=== PATIENT | female | born 1955 | race Caucasian/White ===

== ENCOUNTER → 2022-04-13 | Outpatient (CLI) | payer MEDICARE, SELFPAY ==
[2022-04-13 15:31] LABS: Absolute Lymphocyte Count 2.64 X10^3/uL (0.83-4.51); Absolute Neutrophil Count 11.9 X10^3/uL (2.0-7.7); Basophil# 0.07 X10^3/uL; Basophil% 0.4 % (0-1); Eosinophils% 0.6 % (0-5); Hematocrit 49.3 % (37-47); Hemoglobin 15.8 g/dL (12.0-15.0); Lymphocyte # 2.64 X10^3/ul (0.83-4.51); Lymphocyte % 16.9 % (19-41); Mean Corpuscular Hgb 29.6 pg (27.0-32.0); Mean Corpuscular Volume 92.3 fL (81-99); Mean Platelet Vol. 9.8 fl (6.2-12.0); Monocyte% 5.7 % (0-10); NRBC Flagged by Analyzer 0 % (0-5); Neutrophil # 11.88 X10^3/uL (2.7-7.7); Platelet Count 354 K/mm3 (150-450); RBC Distribution Width CV 12.6 % (11.6-14.6); RBC Distribution Width SD 42.6 fl (35.1-43.9); Red Blood Count 5.34 M/mm3 (4.2-5.4); White Blood Count 15.7 K/mm3 (4.4-11.0)
[2022-04-13 15:47] LABS: AST(SGOT) 22 U/L (15-37); Alanine Aminotransfer ALT/SGPT 34 U/L (13-56); Albumin, Serum 3.7 g/dL (3.2-5.0); Alkaline Phosphatase 84 U/L (45-117); Anion Gap 6 (5-15); BUN 10 mg/dL (7-18); BUN/Creat Ratio 14.3 RATIO (10-20); Calcium,Total 9.5 mg/dL (8.5-10.1); Chloride 106 mmol/L (98-107); EST Glomerular Filtration Rate 89 mL/min (>60); Est Glom Filt Rate - Afr Amer 108 mL/min (>60); Globulin 3.7 g/dL (2.2-4.2); Glucose 105 mg/dL (74-106); Potassium 3.4 mmol/L (3.5-5.1); Protein, Total 7.4 g/dL (6.4-8.2); Sodium Level 142 mmol/L (136-145); T4 Free Direct 1.22 ng/dL (0.76-1.46); Thyroid Stim Hormone (TSH) 0.89 uIU/mL (0.358-3.74)
== END | disposition home or self-care (01) ==
PROVIDERS: PCP Internal Medicine; Referring Provider Internal Medicine; Visit Provider Internal Medicine
DX: K52.9 Noninfective gastroenteritis and colitis, unspecified (principal); R63.4 Abnormal weight loss
CPT/HCPCS: 36415; 80053; 84439; 84443; 85025

== ENCOUNTER → 2022-04-14 | Outpatient (CLI) | payer MEDICARE, SELFPAY ==
[2022-04-17 21:13] LABS: Calprotectin, Stool 48 ug/g (0-120)
== END | disposition home or self-care (01) ==
LOC: LABSPEC 10:32
PROVIDERS: PCP Internal Medicine; Referring Provider Internal Medicine; Visit Provider Internal Medicine
DX: K52.9 Noninfective gastroenteritis and colitis, unspecified (principal); R19.5 Other fecal abnormalities
CPT/HCPCS: 82274; 83630; 83993; 87493

== ENCOUNTER 2025-01-13 10:14 | Inpatient (IN) | payer MEDICARE, SELFPAY ==
[2025-01-13] VITALS (15 sets, daily range): BP systolic 127–184; BP diastolic 71–114; PULSE 97–120; RESP 10–30; TEMP 36.4–36.6; O2SAT 91–98; BMI 23.5; BMI 23.2
--- NOTE | 2025-01-13 10:33 | EKG12_ITS ---
Test Reason : SOB Blood Pressure : */* mmHG Vent. Rate : 100 BPM Atrial Rate : 100 BPM P-R Int : 134 ms QRS Dur : 82 ms QT Int : 346 ms P-R-T Axes : 81 81 75 degrees QTcB Int : 446 ms Normal sinus rhythm Normal ECG Confirmed by LEOBARDO DEGROOT, AYAAN ([id number]), industrial editor SAFIA JEAN ([id number]) on 01/15/2025 6:51:08 AM Referred By: MEGHAN/VENECIA Confirmed By: AYAAN BOOTH MD
--- NOTE | 2025-01-13 10:42 | ED.VIS.DYS ---
HPI History of Present Illness Chief Complaint: Shortness of Breath Narrative Narrative: Chief complaint and HPI: Shortness of breath. 69-year-old female with past medical history of tobacco abuse, COPD, HTN, HLD, history of blood clots presents for evaluation of shortness of breath. Patient does not follow with a financial director. She has not seen a doctor in years. She does not take any medications. She states she has home oxygen at home which she has had for years. States the oxygen has not been helping with her shortness of breath. She states she takes an inhaler at home for her COPD. When I ask her who prescribes her inhaler she says no one, I get the inhaler on the streets by people who no longer need them. Onset of shortness of breath was approximately 1 week ago. She denies any fever, chills, URI symptoms, chest pain, abdominal pain, nausea, vomiting, bilateral lower extremity edema. Review of systems: See HPI Medications: As listed on the chart Allergies: As listed on the chart PFSH: Per chart Vital signs: As listed on the chart. Reviewed. Physical exam: Gen: A&O x3, NAD Head: Normocephalic, atraumatic Eyes: No sclera icterus, conjunctiva clear ENT: Moist mucous membranes Neck: Trachea midline, No JVD CV: Tachycardic, regular rhythm, no murmurs, no peripheral edema Resp: Lungs diminished, expiratory wheezing, poor airflow, tight, tachypneic GI: Abd soft, non-distended, non-tender, no r/r/g Musc: Full ROM, no deformity Skin: Warm, dry Neuro: Alert, oriented, grossly intact, sensation intact Psych: Cooperative, appropriate mood and affect [facility] Medical History (Updated 04/13/22 @ 16:[address] Bay Miller MD) Tobacco abuse Generalized anxiety disorder with panic attacks Unintentional weight loss of 10% body weight within 6 months Dark stools Chronic diarrhea High cholesterol Hypertension Gastrointestinal problem COPD (chronic obstructive pulmonary disease) Hx of blood clots Home Medications ?Medication ?Instructions ?Recorded ?Last Taken ?Type NK 01/13/25 Unknown History Allergy/AdvReac Type Severity Reaction Status Date / Time No Known Allergies Allergy Verified 01/13/25 10:15 Family History (Updated 04/13/22 @ 14:08 by Rosie Momin) Sister Arthritis Mother Myocardial infarction Other Anxiety Heart disease High cholesterol Social History Smoking Status: Current every day smoker tobacco type: cigarettes EXAM Physical Exam Const Vital Signs: 01/13/25 10:15 01/13/25 10:15 01/13/25 10:30 Temperature 97.9 F Temperature Source Temporal Pulse Rate 116 H 120 H Respiratory Rate 30 H Respiratory Effort Labored Accessory Muscle Use Respiratory Pattern Tachypnea Blood Pressure 184/87 H Blood Pressure Mean 119 Pulse Ox 91 93 Oxygen Delivery Method Room Air Room Air Fraction of Inspired Oxygen (FIO2) 01/13/25 10:37 01/13/25 10:56 01/13/25 11:22 Temperature Temperature Source Pulse Rate 105 H Respiratory Rate 24 H 24 H Respiratory Effort Accessory Muscle Use Respiratory Pattern Blood Pressure 148/84 H Blood Pressure Mean 105 Pulse Ox 94 Oxygen Delivery Method Room Air Fraction of Inspired Oxygen (FIO2) 01/13/25 11:26 01/13/25 12:00 01/13/25 12:26 Temperature Temperature Source Pulse Rate 107 H 101 H 114 H Respiratory Rate 28 H 21 H 23 H Respiratory Effort Respiratory Pattern Blood Pressure 139/81 H Blood Pressure Mean 100 Pulse Ox 98 95 96 Oxygen Delivery Method Fraction of Inspired Oxygen (FIO2) 21 21 01/13/25 12:42 01/13/25 12:43 01/13/25 13:00 Temperature 97.9 F Temperature Source Pulse Rate 108 H 115 H 107 H Respiratory Rate 28 H 21 H Respiratory Effort Respiratory Pattern Blood Pressure 127/99 H 144/75 H Blood Pressure Mean 108 98 Pulse Ox 96 92 Oxygen Delivery Method Room Air Fraction of Inspired Oxygen (FIO2) 01/13/25 14:00 Temperature Temperature Source Pulse Rate 105 H Respiratory Rate Respiratory Effort Respiratory Pattern Blood Pressure 144/75 H Blood Pressure Mean 98 Pulse Ox 96 Oxygen Delivery Method Room Air Fraction of Inspired Oxygen (FIO2) MDM MDM MDM Narrative Medical decision making narrative: 69-year-old female with past medical history of tobacco abuse, COPD, HTN, HLD, history of blood clots presents for evaluation of shortness of breath. Patient does not follow with a financial director. She has not seen a doctor in years. She does not take any medications other than an inhaler that she gets off the streets. She states she has home oxygen at home which she has had for years. States the oxygen has not been helping with her shortness of breath. Shortness of breath approximately 1 week. On presentation, patient is hypertensive, tachycardic, tachypneic. No hypoxia. She has expiratory wheezing with a tight chest. 500 cc NS bolus, DuoNebs, Solu-Medrol ordered for symptoms. Suspect COPD exacerbation although viral illness, hypertension urgency, ACS, PE, pneumonia, CHF are all within the differential. Patient's hypertension is likely her baseline from untreated hypertension. Will give some hydralazine. Respiratory/cardiac workup ordered. Hypertension improved with hydralazine. VBG shows mild hypercapnia without acidosis. Likely chronic CO2 retainer based on VBG. CBC with mild leukocytosis of 13.9. Patient has hemoconcentration of 15.5. Platelet count unremarkable. D-dimer unremarkable. BMP unremarkable. BNP unremarkable. Troponin 29 and 26. Patient not endorsing any chest pain. No ischemic changes on EKG. On reevaluation, patient is still tachypneic with pursed lip breathing. Her respiration rate is between 35 and 40. I do feel that the patient would benefit from BiPAP for work of breathing. BiPAP placed. Another DuoNeb ordered. CODE STATUS was discussed with the patient, states she is full code. Patient originally stating that she wants to leave AMA. When I explained her condition further forward to her and that I do not think this is safe, she is consented to stay. Patient will warrant admission. Spoke with the hospitalist service he would like ABG and trial off BiPAP with pulse ox ambulation trial. This was ordered. ABG was unable to be obtained and patient refused further attempts. She was taken off of BiPAP. On BiPAP, patient's tachycardia and respirations improved however off, she is not tachycardic again and breathing with a rate of 35-40. We did ambulate her with pulse ox, no hypoxia. Hospitalist did come evaluate the patient. Plan is for admission. EKG: Interpreted by me/EM physician: EKG shows normal sinus rhythm without any acute ischemic changes. Heart rate 100. Diagnostic: Interpreted by me/EM physician: Chest x-ray without pneumonia, effusion, cardiomegaly, pneumothorax. Radiology in agreement. Impression: 1. COPD exacerbation 2. Hypertension 3. Medical noncompliance Lab Data Labs: Laboratory Results - last 24 hr 01/13/25 01/13/25 10:28 12:30 WBC 13.9 H RBC 5.06 Hgb 15.5 H Hct 48.8 H MCV 96.4 MCH 30.6 MCHC 31.8 L RDW Std Deviation 45.7 H RDW Coeff of Faisal 12.9 Plt Count 323 MPV 9.3 Immature Gran % (Auto) 1.700 H Neut % (Auto) 71.6 H Lymph % (Auto) 17.0 L Hettinger % (Auto) 8.3 Eos % (Auto) 0.6 Baso % (Auto) 0.8 Absolute Neuts (auto) 10.0 H Absolute Lymphs (auto) 2.36 Nucleated RBC % 0 D-Dimer Quant (PE/DVT) 0.27 Sodium 139 Potassium 3.7 Chloride 101 Carbon Dioxide 25.6 Anion Gap 13 BUN 10 Creatinine 0.84 Estim Creat Clear Calc 47.03 L Est GFR (MDRD) Non-Af 74 BUN/Creatinine Ratio 11.7 Glucose 158 H Calcium 9.6 Troponin T High Sens 29 H Troponin T Hi Sens 2 Hr 26 H NT pro BNP II 108 ABG Data ABG results: ABG 01/13/25 01/13/25 10:43 13:43 Specimen Type ARLINE ARLINE Sample Site Not entered Not entered VBG pH 7.41 7.43 H VBG pO2 35 38 VBG HCO3 38 H 33 H VBG Total CO2 40 H 34 H VBG O2 Sat (Calc) 65 73 H VBG Base Excess 14 H 8 H POC Mix VBG pCO2 Pt Tmp 60.3 H 48.5 O2 Delivery Device Not entered Not entered Radiography Diagnostic Testing: Clinical Impression(s) from Imaging Studies Chest X-Ray 01/13/25 10:50 IMPRESSION: NO ACUTE FINDINGS. Reading Location: [id number] Discharge Plan Disposition Disposition: Acute Care Hospital [facility] Discharge Date/Time: 01/13/25 14:47
[2025-01-13 10:48] LABS: SITE Not entered; VBG BASE EXCESS 14 mmol/L (-1.0-3.5); VBG PO2 35 mmHg (25-40); VBG SO2 65 % (50-70); VBG TCO2 40 mmol/L (23-33)
[2025-01-13 10:48] LABS: Hematocrit 48.8 % (37-47); Hemoglobin 15.5 g/dL (12.0-15.0); Immature Granulocytes Count 0.230 X10^3/uL (0.0-0.0); Mean Corp Hgb Conc 31.8 g/dL (32-36); Mean Corpuscular Volume 96.4 fL (81-99); Mean Platelet Vol. 9.3 fl (6.2-12.0); NRBC Flagged by Analyzer 0 % (0-5); Platelet Count 323 K/mm3 (150-450); RBC Distribution Width CV 12.9 % (11.6-14.6); RBC Distribution Width SD 45.7 fl (35.1-43.9); Red Blood Count 5.06 M/mm3 (4.2-5.4); White Blood Count 13.9 K/mm3 (4.4-11.0)
--- NOTE | 2025-01-13 10:50 | RAD_ITS ---
PROCEDURE: CHEST PA AND LATERAL 01/13/2025 REASON FOR EXAM: SHORTNESS OF BREATH TECHNIQUE: CHEST PA AND LATERAL COMPARISON: None. FINDINGS: LUNGS AND PLEURA: No focal airspace consolidation. Minimal strandy opacity in the left lung base, likely atelectasis/scarring. No pleural effusion or pneumothorax. HEART AND MEDIASTINUM: The heart size and mediastinal contours are normal. AORTA: Calcified thoracic aorta. BONES: No acute osseous abnormality. OTHER: Small to moderate-sized hiatal hernia noted. RAD/Chest PA and Lateral IMPRESSION: NO ACUTE FINDINGS. Reading Location: [id number]
[2025-01-13] MEDS: 0.9% Normal Saline (500mL Bag) 500 ML 999 ML IV (11:03)
[2025-01-13 11:35] LABS: D-Dimer Quantitative (DVT/PE) 0.27 FEU/ug/m (0.27-0.49)
[2025-01-13 11:40] LABS: Pro- Brain NATRIURETIC PEPTIDE 108 pg/mL (<=900); Troponin T High Sensitivity 29 ng/L (<=14)
--- NOTE | 2025-01-13 11:40 | CPS ---
Patient tried BiPAP for 15-20 minutes. She was unable to tolerate at this time. Dr and RN aware.
[2025-01-13 11:41] LABS: Anion Gap 13 (5-15); BUN 10 mg/dL (4-19); BUN/Creat Ratio 11.7 RATIO (10-20); Calcium,Total 9.6 mg/dL (7.6-11.0); Carbon Dioxide 25.6 mmol/L (21.0-32.0); Chloride 101 mmol/L (98-108); Estimated Creatinine Clearance 47.03 ml/min (50-250); Glucose 158 mg/dL (70-99); Potassium 3.7 mmol/L (3.3-5.1)
--- NOTE | 2025-01-13 12:26 | CPS ---
Patient reluctant to try BiPAP again. Breathing treatment done in-line. Patient tolerated for 25-35 minutes and then removed mask.
[2025-01-13 13:23] LABS: Troponin T High Sens 2 HR 26 ng/L (<=14)
--- NOTE | 2025-01-13 13:24 | ED.RN ---
Pt weak and SOB when ambulating
--- NOTE | 2025-01-13 13:29 | CPS ---
Patient reported having taken bipap mask off around 1300.
[2025-01-13 13:50] LABS: SITE Not entered; VBG BASE EXCESS 8 mmol/L (-1.0-3.5); VBG PO2 38 mmHg (25-40); VBG SO2 73 % (50-70); VBG TCO2 34 mmol/L (23-33)
[2025-01-13] MEDS: hydrOXYzine PAM 25 MG Capsule 50 MG PO ×2 (15:37→21:08)
[2025-01-13 17:25] LABS: Troponin T High Sens 4 HR 21 ng/L (<=14)
--- NOTE | 2025-01-13 19:09 | PCM.HP.STD ---
[facility] - General General Date of Admission: 01/13/25 Date of Service: 01/13/25 Chief Complaint: Shortness of breath HPI Narrative SUSHANT MEDEIROS, is a 69 F who presents to the emergency [facility] with complaints of shortness of breath x 1 week. Patient does not go to a physician chronically, the last time the medical records here indicated that she was seen by a primary care physician was 3 years ago. Patient has a history of COPD, she states that she bought a home oxygen machine on the Internet but it only goes up to 3 L/min, she also states that she is using an old inhaler. Over the past several days, patient has had increasing shortness of breath, she denies any chills or fever, she denied any productive sputum. Patient is a daily smoker of approximately 1 pack of cigarettes a day. On examination in the emergency room, patient appeared to be very dyspneic with rapid shallow respirations between 30 and 40/min. Despite this, patient's pulse ox was 94% on room air. Patient had a chest x-ray performed which showed no acute process, she had a D-dimer performed which was not abnormal. Patient refused an arterial blood gas, she understood that it would be helpful with her care. Patient was given several aerosol treatments and IV Solu-Medrol but she remained dyspneic, again, her pulse ox did not drop below 90% at rest however although she was very tachypneic. Patient was admitted to PCU for acute exacerbation of COPD, pulse ox will be monitored, she will be given aerosol treatments, IV Solu-Medrol, and I placed her on oral Zithromax. [facility] Medical History (Updated 01/14/25 @ 09:[address] Hai Nicolas, ) Tobacco abuse Generalized anxiety disorder with panic attacks Unintentional weight loss of 10% body weight within 6 months Dark stools Chronic diarrhea High cholesterol Hypertension Gastrointestinal problem COPD (chronic obstructive pulmonary disease) Hx of blood clots Home Medications ?Medication ?Instructions ?Recorded ?Last Taken ?Type NK 01/13/25 Unknown History Allergy/AdvReac Type Severity Reaction Status Date / Time No Known Allergies Allergy Verified 01/13/25 10:15 Family History (Updated 04/13/22 @ 14:08 by Rosie Momin) Sister Arthritis Mother Myocardial infarction Other Anxiety Heart disease High cholesterol Social History Smoking Status: Current every day smoker tobacco type: cigarettes ROS Constitutional Constitutional: Reports fatigue; Denies anorexia, change in weight, chills, fever(s), night sweats or weakness Eyes Eyes: Denies blurry vision, change in vision, discharge from eye(s) or eye pain Cardiovascular Cardiovascular: Reports dyspnea on exertion; Denies chest pain, claudication, edema or palpitations Respiratory/Chest Respiratory/Chest: Reports dyspnea, shortness of breath at rest and shortness of breath with exertion; Denies cough or hemoptysis Gastrointestinal Gastrointestinal: Denies abdominal pain, constipation, diarrhea, hematemesis, hematochezia, melena, nausea or vomiting Genitourinary Genitourinary: Denies dysuria, hematuria, urinary frequency, urinary hesitancy, urinary incontinence or urinary urgency Musculoskeletal Musculoskeletal: Denies back pain, joint pain, joint stiffness, joint swelling, myalgias or neck pain Neurologic Neurologic: Denies abnormal gait, abnormal speech, dizziness, focal weakness, headache(s), loss of vision, numbness, other visual disturbances, paresthesias, syncope or tingling Psychiatric Psychiatric: Denies anxiety, cognitive impairment, depression, irritability, mood swings or suicidal ideation Endocrine Endocrinology: Denies change in body appearance, cold intolerance, excessive sweating, heat intolerance, polydipsia or polyuria Hematologic/Lymphatic Hematologic/Lymphatic: Denies none, anemia, easy bleeding, easy bruising or lymphadenopathy Allergic/Immunologic Allergic/Immunologic: Denies rhinitis, urticaria, eczemia or asthma Vital Signs Vital Signs Vital Signs: 01/13/25 10:15 01/13/25 10:15 01/13/25 10:30 Temperature 97.9 F Temperature Source Temporal Pulse Rate 116 H 120 H Respiratory Rate 30 H Respiratory Effort Labored Accessory Muscle Use Respiratory Depth Respiratory Pattern Tachypnea Blood Pressure 184/87 H Blood Pressure Mean 119 Blood Pressure Source Blood Pressure Position Blood Pressure Location Pulse Ox 91 93 Oxygen Delivery Method Room Air Room Air Oxygen Flow Rate (L/min) Fraction of Inspired Oxygen (FIO2) 01/13/25 10:37 01/13/25 10:56 01/13/25 11:22 Temperature Temperature Source Pulse Rate 105 H Respiratory Rate 24 H 24 H Respiratory Effort Accessory Muscle Use Respiratory Depth Respiratory Pattern Blood Pressure 148/84 H Blood Pressure Mean 105 Blood Pressure Source Blood Pressure Position Blood Pressure Location Pulse Ox 94 Oxygen Delivery Method Room Air Oxygen Flow Rate (L/min) Fraction of Inspired Oxygen (FIO2) 01/13/25 11:26 01/13/25 12:00 01/13/25 12:26 Temperature Temperature Source Pulse Rate 107 H 101 H 114 H Respiratory Rate 28 H 21 H 23 H Respiratory Effort Respiratory Depth Respiratory Pattern Blood Pressure 139/81 H Blood Pressure Mean 100 Blood Pressure Source Blood Pressure Position Blood Pressure Location Pulse Ox 98 95 96 Oxygen Delivery Method Oxygen Flow Rate (L/min) Fraction of Inspired Oxygen (FIO2) 21 21 01/13/25 12:42 01/13/25 12:43 01/13/25 13:00 Temperature 97.9 F Temperature Source Pulse Rate 108 H 115 H 107 H Respiratory Rate 28 H 21 H Respiratory Effort Respiratory Depth Respiratory Pattern Blood Pressure 127/99 H 144/75 H Blood Pressure Mean 108 98 Blood Pressure Source Blood Pressure Position Blood Pressure Location Pulse Ox 96 92 Oxygen Delivery Method Room Air Oxygen Flow Rate (L/min) Fraction of Inspired Oxygen (FIO2) 01/13/25 14:00 01/13/25 14:51 01/13/25 15:00 Temperature 97.6 F L Temperature Source Oral Pulse Rate 105 H 102 H Respiratory Rate 22 H Respiratory Effort Respiratory Depth Respiratory Pattern Blood Pressure 144/75 H 134/114 H Blood Pressure Mean 98 120 Blood Pressure Source Monitor Blood Pressure Position Semi-Fowlers Blood Pressure Location Left Arm Pulse Ox 96 94 Oxygen Delivery Method Room Air Room Air Room Air Oxygen Flow Rate (L/min) Fraction of Inspired Oxygen (FIO2) 01/13/25 15:11 01/13/25 17:51 Temperature Temperature Source Pulse Rate 107 H Respiratory Rate 20 H Respiratory Effort Short of Breath Respiratory Depth Shallow Respiratory Pattern Tachypnea Normal Blood Pressure Blood Pressure Mean Blood Pressure Source Blood Pressure Position Blood Pressure Location Pulse Ox Oxygen Delivery Method Nasal Cannula Oxygen Flow Rate (L/min) 2 Fraction of Inspired Oxygen (FIO2) Weight Weight: 55.8 kg Body Mass Index (BMI) 23.2 Physical Exam Const alert, oriented x3 and healthy appearing Constitutional Narrative: Patient is to With rapid shallow respirations, patient appears uncomfortable General Appearance: cooperative, well kempt and well developed Orientation / Consciousness: awake, oriented to person, oriented to place and oriented to time HEENT normocephalic and moist oral mucous membranes; Negative for head/scalp atraumatic Eyes PERRL, EOMs intact bilaterally and conjunctivae normal Neck supple, no JVD, thyroid normal and no carotid bruits General: trachea midline Resp clear to auscultation bilaterally Resp Narrative: Use of accessory muscles as noted, patient has retractions, patient is tachypneic with shallow respirations, breath sounds are diminished bilaterally Auscultation: Negative for rales, rhonchi or wheezes Cardio regular rate, regular rhythm, S1 normal heart sound, S2 normal heart sound, no murmurs, no rub and no gallops GI normal to inspection, nondistended, normoactive bowel sounds, soft to palpation, non-tender and non-distended Extremity no clubbing, cyanosis or edema Skin no rashes or lesions noted General Skin Exam: no breakdown Neuro oriented x3, CN's II-XII intact bilaterally, no focal motor deficits and no sensory deficits noted Sensorium / Orientation: awake and alert Speech: speech normal Psych affect normal Results Lab / Micro Data 01/13/25 10:28 01/13/25 10:28 Labs: Laboratory Results - last 24 hr 01/13/25 10:28: WBC 13.9 H, RBC 5.06, Hgb 15.5 H, Hct 48.8 H, MCV 96.4, MCH 30.6, MCHC 31.8 L, RDW Std Deviation 45.7 H, RDW Coeff of Faisal 12.9, Plt Count 323, MPV 9.3, Immature Gran % (Auto) 1.700 H, Neut % (Auto) 71.6 H, Lymph % (Auto) 17.0 L, Blount % (Auto) 8.3, Eos % (Auto) 0.6, Baso % (Auto) 0.8, Absolute Neuts (auto) 10.0 H, Absolute Lymphs (auto) 2.36, Nucleated RBC % 0, D-Dimer Quant (PE/DVT) 0.27, Sodium 139, Potassium 3.7, Chloride 101, Carbon Dioxide 25.6, Anion Gap 13, BUN 10, Creatinine 0.84, Estim Creat Clear Calc 47.03 L, Est GFR (MDRD) Non-Af 74, BUN/Creatinine Ratio 11.7, Glucose 158 H, Calcium 9.6, Troponin T High Sens 29 H, NT pro BNP II 108 01/13/25 12:30: Troponin T Hi Sens 2 Hr 26 H 01/13/25 16:09: Troponin T Hi Sens 4Hr 21 H ABG Data ABG results: ABG 01/13/25 01/13/25 10:43 13:43 Specimen Type ARLINE ARLINE Sample Site Not entered Not entered VBG pH 7.41 7.43 H VBG pO2 35 38 VBG HCO3 38 H 33 H VBG Total CO2 40 H 34 H VBG O2 Sat (Calc) 65 73 H VBG Base Excess 14 H 8 H POC Mix VBG pCO2 Pt Tmp 60.3 H 48.5 O2 Delivery Device Not entered Not entered Imaging Radiology Impression Chest X-Ray 01/13/25 10:50 IMPRESSION: NO ACUTE FINDINGS. Reading Location: [id number] Assessment & Plan Assessment/Plan (1) COPD with exacerbation: PLAN: Plan 1. Exacerbation of COPD-patient will be admitted to PCU, she will be monitored on telemetry and her pulse ox will be monitored, she will receive IV Solu-Medrol and aerosol treatments #2 noncompliance with medical treatment-patient does not follow-up on a regular basis with a physician, she had been on several medications in the past including inhalers. Total clinical time spent by myself addressing patient's medical issues, reviewing all of her data, and collaborating with patient's care team: 55 minutes Charges/Coding Visit Charges Inpatient E&M: 64509 Init Hosp L2
[2025-01-13] MEDS: Heparin Injection (Vial) 5,000 UNIT/ML VIAL 5000 UNIT SC (21:08)
--- OUTSIDE RECORDS SUMMARY | 2025-01-13 22:30 | XMS RPT_ITS | CCD ---
Author Organization [facility] Care Team Providers Care [employer]et [employer] Name Role Phone REINALDO VALLEJO DO Attending Unavailable REINALDO VALLEJO DO Primary Care Unavailable ROBERT ENGLISH, DR. KAYLA Muhammad Attending Enrico CHAVEZ MD., DR. KAYLA Muhammad Primary Care Dr. Kayla Olivo Primary Care Provider Dr. Kayla Chavez Referring Provider Dr. Bay Miller Attending Provider [phone] Oleghe, Efewongbe Primary Care Unavailable Don Bronson Attending Unavailable Oleghe, Efewongbe Referring Unavailable Oleghe, Efewongbe Referring Unavailable Oleghe, Efewongbe Primary Care Unavailable Oleghe, Efewongbe Attending Unavailable Oleghe, Efewongbe Referring Unavailable Oleghe, Efewongbe Primary Care Unavailable Oleghe, Efewongbe Attending Unavailable Oleghe, Efewongbe Primary Care Unavailable Oleghe, Efewongbe Attending Unavailable Seanghe, Efewongbe Referring Unavailable Kayla Chavez Primary Care Unavailable Kayla Chavez Referring Unavailable Oleghe, Efewongbe Attending Unavailable Dr. Bay Miller MD Primary Care Provider Dr. Marc Delgadillo DO Emergency Provider Dr. Hai Nicolas DO Admit Provider [phone] Dr. Hai Nicolas DO Attending Provider Medications Current Medications Medication Drug Class(es) Dates Sig (Normalized) Sig (Original) [place] (Nk) (1 source) Start: 01-13-2025 [place] (Nk) Active January 13, 2025 12:00am tiotropium 0.018 mg inhalation powder (1 source) Anticholinergic Start: 03-01-2016 take 1 puff(s) by inhalation once daily Tiotropium [place] (Spiriva 18 Mcg) 1 PUFF inhaler Active 1 PUFF INHALATION DAILY February 29, 2016 11:00pm Completed/Discontinued Medications Medication Drug Class(es) Dates Sig (Normalized) Sig (Original) albuterol 0.21 mg/ml inhalation solution (2 sources) beta2-Adrenergic Agonist Start: 04-13-2022 End: 01-13-2025 take 0.63 mg by inhalation every six hours Albuterol Sulfate 0.63 mg/3 mL solution for nebulization Discontinued 0.63 mg INHALATION EVERY 6 HOURS April 13, 2022 12:00am January 13, 2025 12:41pm ALPRAZolam 0.5 mg oral tablet (3 sources) Benzodiazepine Start: 04-13-2022 End: 01-13-2025 take 1 tablet by mouth once daily as needed for anxiety Alprazolam 0.5 mg tablet Discontinued 0.5 mg PO DAILY as needed for anxiety 30 0 April 29, 2022 6:05pm January 13, 2025 12:41pm Generalized anxiety disorder with panic attacks Generalized anxiety disorder Panic disorder [episodic paroxysmal anxiety] amLODIPine 10 mg oral tablet (2 sources) Dihydropyridine Calcium Channel Carmelo Start: 04-13-2022 End: 01-13-2025 take 1 tablet by mouth once daily Amlodipine 10 mg tablet Discontinued 10 mg PO DAILY April 13, 2022 12:00am January 13, 2025 12:41pm atorvastatin 10 mg oral tablet (2 sources) HMG-CoA Reductase Inhibitor Start: 04-13-2022 End: 01-13-2025 take 1 tablet by mouth once daily Atorvastatin 10 mg tablet Discontinued 10 mg PO DAILY April 13, 2022 12:00am January 13, 2025 12:41pm Budesonide-Formote rol (2 sources) Corticosteroid, beta2-Adrenergic Agonist Start: 04-13-2022 End: 01-13-2025 Budesonide-Formot pedro (Symbicort) 80-4.5 mcg/actuation HFA aerosol inhaler Discontinued 1 NMA INHALATION ONCE April 13, 2022 12:00am January 13, 2025 12:41pm Start: 04-13-2022 Budesonide-For moterol (Symbicort) 80-4.5 mcg/actuation HFA aerosol inhaler Active 1 INH INHALATION ONCE April 12, 2022 11:00pm ketorolac tromethamine 10 mg oral tablet (2 sources) Nonsteroidal Anti-inflammatory Drug, Cyclooxygenase Inhibitor Start: 03-01-2016 End: 04-13-2022 take 1 tablet by mouth three times daily as needed for pain Ketorolac 10 MG tablet Discontinued 10 mg PO 3 TIMES DAILY NEEDED as needed for Pain March 01, 2016 11:38am April 13, 2022 1:56pm lisinopril 5 mg oral tablet (2 sources) Angiotensin Converting Enzyme Inhibitor Start: 03-01-2016 End: 04-13-2022 take 1 tablet by mouth once daily Lisinopril 5 MG tablet Discontinued 5 mg PO DAILY March 01, 2016 12:00am April 13, 2022 1:57pm predniSONE 10 mg oral tablet (2 sources) Start: 04-13-2022 End: 01-13-2025 take 1 tablet by mouth once daily Prednisone 10 mg tablet Discontinued 10 mg PO DAILY April 13, 2022 12:00am January 13, 2025 12:41pm rosuvastatin calcium 20 mg oral tablet (2 sources) HMG-CoA Reductase Inhibitor Start: 03-01-2016 End: 04-13-2022 take 1 tablet by mouth once daily Rosuvastatin (Crestor) 20 MG tablet Discontinued 20 mg PO DAILY March 01, 2016 12:00am April 13, 2022 1:57pm sertraline 25 mg oral tablet (2 sources) Serotonin Reuptake Inhibitor Start: 04-13-2022 End: 01-13-2025 take 1 tablet by mouth once daily Sertraline (Zoloft) 25 mg tablet Discontinued 25 mg PO DAILY 30 April 13, 2022 12:00am January 13, 2025 12:41pm Tiotropium [place] (Spiriva 18 Mcg) 1 PUFF inhaler (1 source) Start: 03-01-2016 End: 01-13-2025 Tiotropium [place] (Spiriva 18 Mcg) 1 PUFF inhaler Discontinued 1 NMA INHALATION DAILY March 01, 2016 12:00am January 13, 2025 12:41pm Problems Problem Classification Problem Date Documented Da te Episodic/Chronic Anxiety disorders (3 sources) Generalized anxiety disorder; Translations: [Generalized anxiety disorder] Chronic Essential hypertension (3 sources) Hypertensive disorder; Translations: [Essential (primary) hypertension] Chronic Noninfectious gastroenteritis (4 sources) Chronic diarrhea; Translations: [Noninfective gastroenteritis and colitis, unspecified] Onset: 04-20-2022 Episodic Other gastrointestinal disorders (1 source) Irritable bowel syndrome without diarrhea; Translations: [Irritable bowel syndrome without diarrhea] Onset: 04-13-2022 Chronic Other gastrointestinal disorders (2 sources) Dark stools; Translations: [Other fecal abnormalities] 04-13-2022 Episodic Other gastrointestinal disorders (2 sources) Other fecal abnormalities; Translations: [Nonspecific abnormal findings in stool contents] Onset: 04-13-2022 Episodic Other nutritional; endocrine; and metabolic disorders (2 sources) Unintentional weight loss; Translations: [Abnormal weight loss] 04-13-2022 Episodic Other nutritional; endocrine; and metabolic disorders (2 sources) Abnormal weight loss; Translations: [Loss of weight] Onset: 04-13-2022 Episodic Residual codes; unclassified (2 sources) Tobacco user; Translations: [Tobacco use] 04-13-2022 Episodic Residual codes; unclassified (1 source) Tobacco use; Translations: [Tobacco use disorder] Episodic Results Test Name Value Interpretation Reference Range Facility Absolute lymphocyte countOrd ered By: Marc Delgadillo on 01-13-2025 Lymphocytes Auto (Unsp spec) [#/Vol] 2.36 10*3/uL 0.83-4.51 [facility] Absolute neutrophil countOrd ered By: Mrac Delgadillo on 01-13-2025 Neutrophils (Bld) [#/Vol] 10.0 10*3/uL High 2.0-7.7 [facility] Anion gap in Serum or Plasma Ordered By: Marc Delgadillo on 01-13-2025 Anion gap [Moles/Vol] 13 mmol/L 5-15 [facility] Automated lymphocyte count a s percentage of total leukocytesOrdered By: Marc Delgadillo on 01-13-2025 Lymphocytes/100 WBC Auto (Unsp spec) 17.0 % Low 19-41 [facility] BUN/creatinine ratioOrdered By: Marc Delgadillo on 01-13-2025 Urea nitrogen/Creatinine [Mass ratio] 11.7 mg/mg 10-20 [facility] Basophil percentageOrdered B y: Marc Delgadillo on 01-13-2025 Basophils/100 WBC (Bld) 0.8 % 0-1 [facility] CO2 (BldV) [Moles/Vol]Ordere d By: Hai Nicolas on 01-13-2025 CO2 [Moles/Vol] 34 mmol/L High 23-33 [facility] Carbon dioxide, total [Moles /volume] in Central venous bloodOrdered By: Marc Delgadillo on 01-13-2025 CO2 [Moles/Vol] 25.6 mmol/L 21.0-32.0 [facility] Chloride assayOrdered By: Marin Delgadillo on 01-13-2025 Chloride [Moles/Vol] 101 mmol/L 98-[address] [facility] Eosinophil percentageOrdered By: Marc Delgadillo on 01-13-2025 Eosinophils/100 WBC (Bld) 0.6 % 0-5 [facility] Erythrocyte distribution wid th ratioOrdered By: Marc Delgadillo on 01-13-2025 Erythrocyte distribution width (RBC) [Ratio] 12.9 % 11.6-14.6 [facility] Erythrocyte distribution wid th standard deviationOrdered By: Marc Meehan on 01-13-2025 Erythrocyte distribution width (RBC) [Ratio] 45.7 fl High 35.1-43.9 [facility] Glomerular filtration rate ( GFR) estimation/1.73 sq m using serum, plasma, or whole bOrdered By: Marc Delgadillo on 01-13-2025 GFR/1.73 sq M.predicted among non-blacks MDRD (S/P/Bld) [Vol rate/Area] 74 mL/min/{1.73_m2} >60 [facility] Comment on above: mL/min/1.73m2 CKD-EP I Creatinine Equation (2020) Hematocrit Auto (Bld) [Volum e fraction]Ordered By: Marc Delgadillo on 01-13-2025 Hematocrit (Bld) [Volume fraction] 48.8 % High 37-47 [facility] Hemoglobin measurementOrdere d By: Marc Delgadillo on 01-13-2025 Hemoglobin (Bld) [Mass/Vol] 15.5 g/dL High 12.0-15.0 [facility] Immature granulocytes/100 WB C Auto (Bld)Ordered By: Marc Delgadillo on 01-13-2025 Immature granulocytes/100 WBC (Bld) 1.700 % High 0.0-0.9 [facility] Comment on above: IG% - Immature Granu locytes (promyelocytes, myelocytes and metamyelocytes) > 1% indicates that a LEFT SHIFT is Present. MCV (mean corpuscular volume ) determinationOrdered By: Marc Delgadillo on 01-13-2025 MCV (RBC) [Entitic vol] 96.4 fL 81-99 [facility] Mean corpuscular hemoglobin (MCH) determinationOrdered By: Marc Delgadillo on 01-13-2025 MCH (RBC) [Entitic mass] 30.6 pg 27.0-32.0 [facility] Mean corpuscular hemoglobin concentration (MCHC) determinationOrdered By: Marckay Delgadillo on 01-13-2025 MCHC (RBC) [Mass/Vol] 31.8 g/dL Low 32-36 [facility] Mean platelet volume determi nationOrdered By: Marc Delgadillo on 01-13-2025 Platelet mean volume (Bld) [Entitic vol] 9.3 fL 6.2-12.0 [facility] Monocyte percentageOrdered B y: Marc Delgadillo on 01-13-2025 Monocytes/100 WBC (Bld) 8.3 % 0-10 [facility] Natriuretic peptide.B prohor bethany N-Terminal [Mass/volume] in Serum or PlasmaOrdered By: Marc Delgadillo on 01-13-2025 Natriuretic peptide.B prohormone N-Terminal [Mass/Vol] 108 pg/mL <900 [facility] Comment on above: Heart Failure Unlike ly: < 300 pg/mLHeart Failure Likely< 50 Years: > 450 pg/mL50-75 Years: > 900 pg/mL>75 Years: > 1800 pg/mL Neutrophil percentageOrdered By: Marc Dlegadillo on 01-13-2025 Neutrophils/100 WBC (Bld) 71.6 % High 47-70 [facility] No Panel InformationOrdered By: Hai Nicolas on 01-13-2025 Blood Gas Sample Site Not entered [facility] Blood Gas Specimen Type ARLINE [facility] Oxygen Delivery Device Not entered [facility] Nucleated red blood cell per centageOrdered By: Marc Delgadillo on 01-13-2025 Nucleated RBC/100 WBC (Bld) [Ratio] 0 % 0-5 [facility] Platelet countOrdered By: Marin Delgadillo on 01-13-2025 Platelets (Bld) [#/Vol] 323 10*3/uL 150-450 [facility] Potassium measurement (mass/ volume)Ordered By: Marc Delgadillo on 01-13-2025 Potassium (Unsp spec) [Mass/Vol] 3.7 mmol/L 3.3-5.1 [facility] RBC Auto (Bld) [#/Vol]Ordere d By: Marc Delgadillo on 01-13-2025 RBC (Bld) [#/Vol] 5.06 10*6/uL 4.2-5.4 [facility] Serum creatinine measurement (mass/volume)Ordered By: Marc Delgadillo on 01-13-2025 Creatinine [Mass/Vol] 0.84 mg/dL 0.70-1.20 [facility] Serum glucose measurement (m ass/volume)Ordered By: Marc Delgadillo on 01-13-2025 Glucose [Mass/Vol] 158 mg/dL High 70-99 [facility] Serum or plasma calcium silas urement (mass/volume)Ordered By: Marc Meehan on 01-13-2025 Calcium [Mass/Vol] 9.6 mg/dL 7.6-11.0 [facility] Serum or plasma urea nitroge n measurement (mass/volume)Ordered By: Marc Delgadillo on 01-13-2025 Urea nitrogen [Mass/Vol] 10 mg/dL 4-19 [facility] Sodium levelOrdered By: Alex Delgadillo on 01-13-2025 Sodium [Moles/Vol] 139 mmol/L 133-145 [facility] Troponin T.cardiac [Mass/vol ume] in Serum or Plasma by High sensitivity methodOrdered By: Marc Delgadillo on 01-13-2025 Troponin T.cardiac High sensitivity method [Mass/Vol] 26 ng/L High <14 [facility] Troponin T.cardiac High sensitivity method [Mass/Vol] 29 ng/L High <14 [facility] Venous blood base excess oriana surementOrdered By: Hai Nicolas on 01-13-2025 Base excess Calc (BldV) [Moles/Vol] 8 mmol/L High -1.0-3.5 [facility] Venous blood bicarbonate oriana surementOrdered By: Hai Nicolas on 01-13-2025 HCO3 (Bld) [Moles/Vol] 33 mmol/L High 22-26 [facility] Venous blood oxygen saturati on measurementOrdered By: Hai Nicolas on 01-13-2025 Oxygen saturation in Blood 73 % High 50-70 [facility] Venous blood pH measurementO rdered By: Hai Nicolas on 01-13-2025 pH (BldV) 7.43 [pH] High 7.32-7.42 [facility] Venous blood partial pressur e of carbon dioxide measurementOrdered By: Hai Nicolas on 01-13-2025 CO2 (BldV) [Partial pressure] 48.5 mm[Hg] 41-51 [facility] Venous blood partial pressur e of oxygen measurementOrdered By: Hai Nicolas on 01-13-2025 Oxygen (BldV) [Partial pressure] 38 mm[Hg] 25-40 [facility] White blood cell (WBC) count Ordered By: Marc Delgadillo on 01-13-2025 WBC (Bld) [#/Vol] 13.9 10*3/uL High 4.4-11.0 [facility] Calprotectin, Stoolon [address] 48 ug/g Normal 0-120 [facility] Comment on above: Result Comment: Conc entration Interpretation Follow-Up <16 - 50 ug/g Normal None >50 -120 ug/g Borderline Re-evaluate in 4-6 weeks >120 ug/g Abnormal Repeat as clinically indicated Performed at: [facility] [address] [place], [place] [id number] Daily Release And Dupe Printer: Velma Cordova MD, Phone: [phone] Performed By: #### L 7000.0700, M100.0605, M100.6796, M100.7900 #### [facility] [address] [place], [place], [id number] CDIFF (PCR)on 04-14-2022 CDIFF Reference Range: Negative Testing performed on AntCor by real time polymerase chain reaction (PCR) method. C. Diff PCR Negative- No toxigenic C. Diff Detected Normal [facility] Comment on above: Performed By: #### L 7000.0700, M100.0605, M100.6796, M100.7900 #### [facility] [address] [place], [place], [id number] No Panel Informationon 04-14 Stool Calprotectin 48 ug/g 0-120 [facility] Work Phone: Comment on above: Concentration Interp retation Follow-Up<16 - 50 ug/g Normal None>50 -120 ug/g Borderline Re-evaluate in 4-6 weeks >120 ug/g Abnormal Repeat as clinically indicatedPerformed at: [facility] [place], [place] [id number] Director: Velma Cordova MD, Phone: [phone] Stool Lactoferrin/WBCon WBCST Normal Reference Range = Negative Fecal WBC Lactoferrin A Positive: Fecal WBC Lactoferrin present A Normal [facility] Comment on above: Performed By: #### L 7000.0700, M100.0605, M100.6796, M100.7900 #### [facility] [address] [place], [place], [id number] Stool Occult Blood iFOBon STOB Normal Reference Range = Negative Immunochemical Fecal Occult Blood (iFOBT) method. Hemoccult Stl Ql IA Limitation: Menstral bleeding, constipation bleeding, bleeding hemorrhoids, and urinary bleeding conditions may interfere with test. Occult Blood Negative Normal [facility] Comment on above: Performed By: #### L 7000.0700, M100.0605, M100.6796, M100.7900 #### [facility] [address] [place], [address] Absolute lymphocyte counton 04-13-2022 Lymphocytes Auto (Unsp spec) [#/Vol] 2.64 10*3/uL 0.83-4.51 [facility] Work Phone: Basophil percentageon 2021 Basophils/100 WBC (Bld) 0.4 % 0-1 [facility] Work Phone: Bilirubin [Mass/Vol] 0.70 mg/dL 0.20-1.[address] [facility] Work Phone: Comment on above: For patients on eltr ombopag therapy, use of Dimension [place] TBIL is not recommended. Chloride [Moles/Vol] 106 mmol/L 98-[address] [facility] Work Phone: Eosinophils/100 WBC (Bld) 0.6 % 0-5 [facility] Work Phone: Glucose [Mass/Vol] 105 mg/dL 74-106 [facility] Work Phone: Comment on above: Fasting Glucose resu lt from 100 to 125 mg/dL suggests IMPAIRED HOMEOSTASIS per A.D.A. criteria. Neutrophils (Bld) [#/Vol] 11.9 10*3/uL 2.0-7.7 [facility] Work Phone: Neutrophils/100 WBC (Bld) 76.0 % 47-70 [facility] Work Phone: Potassium [Moles/Vol] 3.4 mmol/L 3.5-5.1 [facility] Work Phone: Protein [Mass/Vol] 7.4 g/dL 6.4-8.2 [facility] Work Phone: Sodium [Moles/Vol] 142 mmol/L 136-145 [facility] Work Phone: WBC (Bld) [#/Vol] 15.7 10*3/uL 4.4-11.0 [facility] Work Phone: Blood erythrocytes count (nu mber/volume)on 04-13-2022 RBC (Bld) [#/Vol] 5.34 10*6/uL 4.2-5.4 [facility] Work Phone: Blood hemoglobin measurement (mass/volume)on 04-13-2022 Hemoglobin (Bld) [Mass/Vol] 15.8 g/dL 12.0-15.0 [facility] Work Phone: Blood lymphocytes/100 leukoc yteson 04-13-2022 Lymphocytes/100 WBC (Bld) 16.9 % 19-41 [facility] Work Phone: Blood monocytes/100 leukocyt eson 04-13-2022 Monocytes/100 WBC (Bld) 5.7 % 0-10 [facility] Work Phone: Blood platelet mean volumeon 04-13-2022 Platelet mean volume (Bld) [Entitic vol] 9.8 fL 6.2-12.0 [facility] Work Phone: CBC W/Diff, Automatedon Absolute Lymph 2.64 X10 3/uL Normal 0.83-4.51 [facility] Comment on above: Performed By: #### L 506.0400, L100.0100, L500.4050, L501.9540 #### [facility] [address] [place], [place], [id number] Absolute Neut 11.9 X10 3/uL High 2.0-7.7 [facility] Comment on above: Performed By: #### L 506.0400, L100.0100, L500.4050, L501.9520 #### [facility] [address] [place], [address] Basophils/100 WBC (Bld) 0.4 % Normal 0-1 [facility] Comment on above: Performed By: #### L 506.0400, L100.0100, L500.4050, L501.9520 #### [facility] [address] [place], [address] Eosinophils/100 WBC (Bld) 0.6 % Normal 0-5 [facility] Comment on above: Performed By: #### L 506.0400, L100.0100, L500.4050, [id number] #### [facility] [address] [place], [address] Erythrocyte distribution width (RBC) [Ratio] 12.6 % Normal 11.6-14.6 [facility] Comment on above: Performed By: #### L 506.0400, L100.0100, L500.4050, L501.9520 #### [facility] [address] [place], [address] Hematocrit (Bld) [Volume fraction] 49.3 % High 37-47 [facility] Comment on above: Performed By: #### L 506.0400, L100.0100, L500.4050, [id number] #### [facility] [address] [place], [address] Hemoglobin (Bld) [Mass/Vol] 15.8 g/dL High 12.0-15.0 [facility] Comment on above: Performed By: #### L 506.0400, L100.0100, L500.4050, [id number] #### [facility] [address] [place], [address] IG% 0.400 Normal 0.0-0.9 [facility] Comment on above: Result Comment: IG% - Immature Granulocytes (promyelocytes, myelocytes and metamyelocytes) > 1% indicates that a LEFT SHIFT is Present. Performed By: #### L 506.0400, L100.0100, L500.4050, L501.9520 #### [facility] [address] [place], [address] Lymphocytes/100 WBC (Bld) 16.9 % Low 19-41 [facility] Comment on above: Performed By: #### L 506.0400, L100.0100, L500.4050, [id number] #### [facility] [address] [place], [address] MCH (RBC) [Entitic mass] 29.6 pg Normal 27.0-32.0 [facility] Comment on above: Performed By: #### L 506.0400, L100.0100, L500.4050, [id number] #### [facility] [address] [place], [address] MCHC (RBC) [Mass/Vol] 32.0 g/dL Normal 32-36 [facility] Comment on above: Performed By: #### L 506.0400, L100.0100, L500.4050, [id number] #### [facility] [address] [place], [address] MCV (RBC) [Entitic vol] 92.3 fL Normal 81-99 [facility] Comment on above: Performed By: #### L 506.0400, L100.0100, L500.4050, [id number] #### [facility] [address] [place], [address] Monocytes/100 WBC (Bld) 5.7 % Normal 0-10 [facility] Comment on above: Performed By: #### L 506.0400, L100.0100, L500.4050, [id number] #### [facility] [address] [place], [address] Neutrophils/100 WBC (Bld) 76.0 % High 47-70 [facility] Comment on above: Performed By: #### L 506.0400, L100.0100, L500.4050, [id number] #### [facility] [address] [place], [address] Nucleated RBC (Bld) [#/Vol] 0 10*3/uL Normal 0-5 [facility] Comment on above: Performed By: #### L 506.0400, L100.0100, L500.4050, [id number] #### [facility] [address] [place], [address] Platelet mean volume (Bld) [Entitic vol] 9.8 fL Normal 6.2-12.0 [facility] Comment on above: Performed By: #### L 506.0400, L100.0100, L500.4050, [id number] #### [facility] [address] [place], [address] Platelets (Bld) [#/Vol] 354 10*3/uL Normal 150-450 [facility] Comment on above: Performed By: #### L 506.0400, L100.0100, L500.4050, [id number] #### [facility] [address] [place], [address] RBC (Bld) [#/Vol] 5.34 10*6/uL Normal 4.2-5.4 [facility] Comment on above: Performed By: #### L 506.0400, L100.0100, L500.4050, [id number] #### [facility] [address] [place], [address] RDW SD 42.6 fl Normal 35.1-43.9 [facility] Comment on above: Performed By: #### L 506.0400, L100.0100, L500.4050, [id number] #### [facility] [address] [place], [address] WBC (Bld) [#/Vol] 15.7 10*3/uL High 4.4-11.0 [facility] Comment on above: Performed By: #### L 506.0400, L100.0100, L500.4050, [id number] #### [facility] [address] [place], [address] Comprehensive Metabolic Prof ilon 04-13-2022 Albumin [Mass/Vol] 3.7 g/dL Normal 3.2-5.0 [facility] Comment on above: Performed By: #### L 506.0400, L100.0100, L500.4050, [id number] #### [facility] [address] [place], [address] Albumin/Globulin [Mass ratio] 1.0 {ratio} Normal 0.9-2.4 [facility] Comment on above: Performed By: #### L 506.0400, L100.0100, L500.4050, [id number] #### [facility] [address] [place], [address] ALK P 84 U/L Normal 45-117 [facility] Comment on above: Performed By: #### L 506.0400, L100.0100, L500.4050, [id number] #### [facility] [address] [place], [address] ALT [Catalytic activity/Vol] 34 U/L Normal 13-56 [facility] Comment on above: Performed By: #### L 506.0400, L100.0100, L500.4050, [id number] #### [facility] [address] [place], [address] AST [Catalytic activity/Vol] 22 U/L Normal 15-37 [facility] Comment on above: Performed By: #### L 506.0400, L100.0100, L500.4050, [id number] #### [facility] [address] [place], [address] Bilirubin [Mass/Vol] 0.70 mg/dL Normal 0.20-1.[address] [facility] Comment on above: Result Comment: For patients on eltrombopag therapy, use of Dimension [place] TBIL is not recommended. Performed By: #### L 506.0400, L100.0100, L500.4050, [id number] #### [facility] [address] [place], [address] BUN/CRE 14.3 RATIO Normal 10-20 [facility] [facility] Comment on above: Performed By: #### L 506.0400, L100.0100, L500.4050, L501.9520 #### [facility] [address] [place], [address] CA,Total 9.5 mg/dL Normal 8.5-10.1 [facility] Comment on above: Performed By: #### L 506.0400, L100.0100, L500.4050, L501.9520 #### [facility] [address] [place], [address] Chloride [Moles/Vol] 106 mmol/L Normal 98-[address] [facility] Comment on above: Performed By: #### L 506.0400, L100.0100, L500.4050, [id number] #### [facility] [address] [place], [address] CO2 [Moles/Vol] 30.0 mmol/L Normal 21.0-32.0 [facility] Comment on above: Performed By: #### L 506.0400, L100.0100, L500.4050, L501.9520 #### [facility] [address] [place], [address] Creatinine [Mass/Vol] 0.70 mg/dL Normal 0.55-1.02 [facility] Comment on above: Result Comment: The validity of the calculated GFR GFRAA in patients over 70 years has not been determined. Clinical correlation is essential. Performed By: #### L 506.0400, L100.0100, L500.4050, [id number] #### [facility] [address] [place], [address] EST GFR - AA 108 mL/min Normal >60 [facility] Comment on above: Result Comment: Afri can Bur[place]ian GFR Calc Performed By: #### L 506.0400, L100.0100, L500.4050, [id number] #### [facility] [address] [place], [address] GAP 6 Normal 5-15 [facility] Comment on above: Performed By: #### L 506.0400, L100.0100, L500.4050, L501.9520 #### [facility] [address] [place], [address] GFR/1.73 sq M.predicted among non-blacks MDRD (S/P/Bld) [Vol rate/Area] 89 mL/min/{1.73_m2} Normal >60 [facility] Comment on above: Result Comment: Non- GFR Calc Performed By: #### L 506.0400, L100.0100, L500.4050, L501.9520 #### [facility] [address] [place], [address] Globulin (S) [Mass/Vol] 3.7 g/dL Normal 2.2-4.2 [facility] Comment on above: Performed By: #### L 506.0400, L100.0100, L500.4050, [id number] #### [facility] [address] [place], [address] Glucose [Mass/Vol] 105 mg/dL Normal 74-106 [facility] Comment on above: Result Comment: Fast ing Glucose result from 100 to 125 mg/dL suggests IMPAIRED HOMEOSTASIS per A.D.A. criteria. Performed By: #### L 506.0400, L100.0100, L500.4050, L501.9520 #### [facility] [address] [place], [address] Potassium [Moles/Vol] 3.4 mmol/L Low 3.5-5.1 [facility] Comment on above: Performed By: #### L 506.0400, L100.0100, L500.4050, [id number] #### [facility] [address] [place], [address] Sodium [Moles/Vol] 142 mmol/L Normal 136-145 [facility] Comment on above: Performed By: #### L 506.0400, L100.0100, L500.4050, [id number] #### [facility] [address] [place], [address] T PROT 7.4 g/dL Normal 6.4-8.2 [facility] Comment on above: Performed By: #### L 506.0400, L100.0100, L500.4050, [id number] #### [facility] [address] [place], [address] Urea nitrogen [Mass/Vol] 10 mg/dL Normal 7-18 [facility] Comment on above: Performed By: #### L 506.0400, L100.0100, L500.4050, [id number] #### [facility] [address] [place], [address] Determination of erythrocyte mean corpuscular volume (MCV)on 04-13-2022 MCV (RBC) [Entitic vol] 92.3 fL 81-99 [facility] Work Phone: Hematocrit Auto (Bld) [Volum e fraction]on 04-13-2022 Hematocrit (Bld) [Volume fraction] 49.3 % 37-47 [facility] Work Phone: Internal Medicine Office Vis iton 04-13-2022 Internal Medicine Office Visit [facility] [address] [place], [place] [address] OFFICE VISIT Date of Service: 04/13/22 MR#: [id number] Acct: [id number] Name: SUSHANT MEDEIROS Rep #: [id number] : 1955 Provider: Dr. 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 Chief Complaint: Est.Care Allergies No Known Allergies Allergy (Verified 04/13/22 13:56) Medications tiotropium bromide 18 mcg capsule with inhalation device (Spiriva with HandiHaler) 1 puff inhalation DAILY 03/01/16 [History Confirmed 04/13/22] albuterol sulfate 0.63 mg/3 mL solution for nebulization 0.63 mg inhalation Q6H 04/13/22 [History Confirmed 04/13/22] alprazolam 0.5 mg tablet 0.5 mg PO DAILY 04/13/22 [History Confirmed 04/13/22] amlodipine 10 mg tablet 10 mg PO DAILY 04/13/22 [History Confirmed 04/13/22] atorvastatin 10 mg tablet 10 mg PO DAILY 04/13/22 [History Confirmed 04/13/22] budesonide-formoterol HFA 80 mcg-4.5 mcg/actuation aerosol inhaler (Symbicort) 1 inh inhalation ONCE 04/13/22 [History Confirmed 04/13/22] prednisone 10 mg tablet 10 mg PO DAILY 04/13/22 [History Confirmed 04/13/22] sertraline 25 mg tablet (Zoloft) 25 mg PO DAILY #30 tabs 04/13/22 [Rx Confirmed 04/13/22] [facility] Medical History (Updated 04/13/22 @ 16:[address] Bay Miller MD) Chronic diarrhea COPD (chronic obstructive pulmonary disease) Dark stools Gastrointestinal problem Generalized anxiety disorder with panic attacks High cholesterol Hx of blood clots Hypertension Tobacco abuse Unintentional weight loss of 10% body weight within 6 months Family History (Updated 04/13/22 @ 14:08 by Rosie Momin) Sister Arthritis Mother Myocardial infarction Other Anxiety Heart disease High cholesterol Social History Smoking Status: Current every day smoker HPI HPI Chief Complaint: Est.Care Details: SUSHANT MEDEIROS, is a 66 F who presents to the office today to establish care. Also has some concerns. She reports weight loss over the last 8 months. Unintentional. She states that her appetite is good but has noted that she has progressively lost weight. Currently weighs 111 pounds but she states that prior to this, she was at 130. Also at the same time, has noted increased watery bowel movements. No significant abdominal pain just watery bowel movements. Most days, she has 3-4 and on very bad days she may have 7-8. Has noted that her stool is dark as well but denies bright blood in her stool. Has never had a colonoscopy. No reported family history of colon cancer. She smokes and has smoked for many years. Denies any difficulty swallowing or burning on swallowing. No chills, fever or otherwise feeling of unwell. Reports a chronic history of anxiety and has been on Xanax for many years. She states that she takes about 3-4 daily as needed depending on the situation. Has not been on an SSRI or SNRI. Denies any history of depression. History of hypertension, blood pressure today at 110/60 7 mmHg. Currently on amlodipine 10 mg daily which she reports compliance with. No chest pain, palpitation or worsening shortness of breath. History of COPD currently on Spiriva. Also on Symbicort. No recent exacerbations. Continues to smoke. ROS Const Constitutional: Positive for weight change; No anorexia, chills, excessive sweating, fatigue, fever(s), frequent falls, headache(s) or night sweats Eyes Eyes: No blurry vision, double vision, discharge, vision loss, dry eyes, visual disturbances or spots in vision ENT ENT: No abnormal hearing, ear or mastoid pain, ear discharge, tinnitus, nasal congestion, sinus pressure, nasal discharge, headache(s), difficulty swallowing, lip swelling, tongue swelling or throat swelling Resp Respiratory: No change in phlegm color, hemoptysis, pain on inspiration, pain with cough or wheezing Cardio Cardiology: No leg pain with exertion, excessive sweating, shortness of breath, generalized swelling, irregular heart rhythm or orthopnea Gastro GI: Positive for diarrhea, loose stools and Black,tarry stools; No change in bowel habits, coffee ground emesis, cramping, difficulty swallowing, feeling full early or incontinent of stools Genitourinary-Female: No burning urination, painful urination, urinary urgency, urinary hesitancy, urinary retention, Frequent nighttime urination/ nocturia, post void dribbling, suprapubic fullness, abnormal periods or abnormal vaginal bleeding Musc Mu (more content not included)... Normal [facility] - Chemistry and C hemistry - challengeon 04-13-2022 ALP [Catalytic activity/Vol] 84 U/L 45-117 [facility] Work Phone: ALT [Catalytic activity/Vol] 34 U/L 13-56 [facility] Work Phone: CO2 [Moles/Vol] 30.0 mmol/L 21.0-32.0 [facility] Work Phone: Free T4 [Mass/Vol] 1.22 ng/dL 0.76-1.46 [facility] Work Phone: Globulin (S) [Mass/Vol] 3.7 g/dL 2.2-4.2 [facility] Work Phone: Urea nitrogen/Creatinine [Mass ratio] 14.3 mg/mg 10-20 [facility] Work Phone: Laboratory - Hematology and Cell countson 04-13-2022 Erythrocyte distribution width (RBC) [Entitic vol] 42.6 fL 35.1-43.9 [facility] Work Phone: Erythrocyte distribution width (RBC) [Ratio] 12.6 % 11.6-14.6 [facility] Work Phone: Immature granulocytes/100 WBC (Bld) 0.400 % 0.0-0.9 [facility] Work Phone: Comment on above: IG% - Immature Granu locytes (promyelocytes, myelocytes and metamyelocytes) > 1% indicates that a LEFT SHIFT is Present. MCH (RBC) [Entitic mass] 29.6 pg 27.0-32.0 [facility] Work Phone: Nucleated RBC/100 WBC (Bld) [Ratio] 0 % 0-5 [facility] Work Phone: MCHC Auto (RBC) [Mass/Vol]on 04-13-2022 MCHC (RBC) [Mass/Vol] 32.0 g/dL 32-36 [facility] Work Phone: No Panel Informationon 04-13 Estimated GFR (MDRD) Amer 108 mL/min >60 [facility] Work Phone: Comment on above: GFR Calc Estimated GFR (MDRD) Non-Af Amer 89 mL/min >60 [facility] Work Phone: Comment on above: Non- GFR Calc Thyroid Stimulating Hormone (TSH) 0.89 uIU/mL 0.358-3.74 [facility] Work Phone: Platelets bldon 04-13-2022 Platelets (Bld) [#/Vol] 354 10*3/uL 150-450 [facility] Work Phone: Serum or plasma albumin silas urement (mass/volume)on 04-13-2022 Albumin [Mass/Vol] 3.7 g/dL 3.2-5.0 [facility] Work Phone: Serum or plasma albumin/glob ulin mass ratioon 04-13-2022 Albumin/Globulin [Mass ratio] 1.0 {ratio} 0.9-2.4 [facility] Work Phone: Serum or plasma calcium silas urement (mass/volume)on 04-13-2022 Calcium [Mass/Vol] 9.5 mg/dL 8.5-10.1 [facility] Work Phone: Serum or plasma creatinine m easurement (mass/volume)on 04-13-2022 Creatinine [Mass/Vol] 0.70 mg/dL 0.55-1.02 [facility] Work Phone: Comment on above: The validity of the calculated GFR & GFRAA in patients over 70 years has not been determined. Clinical correlation is essential. Serum or plasma urea nitroge n measurement (mass/volume)on 04-13-2022 Urea nitrogen [Mass/Vol] 10 mg/dL 7-18 [facility] Work Phone: T4 Free Directon 04-13-2022 T4 FREE DIRECT 1.22 ng/dL Normal 0.76-1.46 [facility] Comment on above: Performed By: #### L 506.0400, L100.0100, L500.4050, L501.9520 #### [facility] [address] [place], [address] Thin prep Papanicolaou smear with manual screeningon 04-13-2022 Thin prep Papanicolaou smear with manual screening 22 U/L 15-37 [facility] Work Phone: Thin prep Papanicolaou smear with manual screening 6 5-15 [facility] Work Phone: Thyroid Stim Hormone (TSH)on 04-13-2022 TSH 0.89 uIU/mL Normal 0.358-3.74 [facility] Comment on above: Performed By: #### L 506.0400, L100.0100, L500.4050, L501.9520 #### [facility] [address] [place], [place], [address] B12on 03-02-2022 Cobalamin (Vitamin B12) [Mass/Vol] 332 pg/mL Normal 211-911 [facility] ([place]) Comment on above: Performed By: #### F ERR, MG, TSH, GFR, FT4, FES, VIDH, BMP #### [address] [address] #### B12 #### [address] [address] .Auto Diffon 03-01-2022 Basophil, Absolute 0.1 10 3/mcL Normal 0.0-0.2 [facility] ([place]) Comment on above: Performed By: #### F ERR, MG, TSH, GFR, FT4, FES, VIDH, BMP #### [address] [address] #### B12 #### [address] [address] Basophils/100 WBC (Bld) 0.6 % Normal 0.0-2.5 A [facility] ([place]) Comment on above: Performed By: #### F ERR, MG, TSH, GFR, FT4, FES, VIDH, BMP #### [address] [address] #### B12 #### [address] [address] Eosinophil, Absolute 0.1 10 3/mcL Normal 0.0-0.4 [facility] ([place]) Comment on above: Performed By: #### F ERR, MG, TSH, GFR, FT4, FES, VIDH, BMP #### [address] [address] #### B12 #### [address] [address] Eosinophils/100 WBC (Bld) 0.7 % Normal 0.0-7.0 [facility] ([place] Comment on above: Performed By: #### F ERR, MG, TSH, GFR, FT4, FES, VIDH, BMP #### [place] [address] #### B12 #### [address] [address] Lymphocyte, Absolute 2.6 10 3/mcL Normal 0.8-3.9 [facility] ([place]) Comment on above: Performed By: #### F ERR, MG, TSH, GFR, FT4, FES, VIDH, BMP #### [place] [address] #### B12 #### [address] [address] Lymphocytes/100 WBC (Bld) 14.9 % Normal 10.0-50.0 [facility] ([place] Comment on above: Performed By: #### F ERR, MG, TSH, GFR, FT4, FES, VIDH, BMP #### [place] [address] #### B12 #### [address] [address] Monocyte, Absolute 1.1 10 3/mcL High 0.2-1.0 [facility] ([place] Comment on above: Performed By: #### F ERR, MG, TSH, GFR, FT4, FES, VIDH, BMP #### [place] [address] #### B12 #### [address] [address] Monocytes/100 WBC (Bld) 6.0 % Normal 1.7-13.0 [facility] ([place] Comment on above: Performed By: #### F ERR, MG, TSH, GFR, FT4, FES, VIDH, BMP #### [place] [address] #### B12 #### [address] [address] Neutrophils/100 WBC (Bld) 77.8 % Normal 37.0-80.0 [facility] ([place] Comment on above: Performed By: #### F ERR, MG, TSH, GFR, FT4, FES, VIDH, BMP #### [address] [address] #### B12 #### [address] [address] .GFRon 03-01-2022 GFR Non- 83 ml/min/1.73sqm Normal [facility] ([place] Comment on above: Result Comment: GFR Population mean for , Non- Americans Ages 20-29 = 116 mL/min/1.73 sq.m. Ages 30-39 = 107 mL/min/1.73 sq.m. Ages 40-49 = 99 mL/min/1.73 sq.m. Ages 50-59 = 93 mL/min/1.73 sq.m. Ages 60-69 = 85 mL/min/1.73 sq.m. Ages 70+ = 75 mL/min/1.73 sq.m. Chronic Kidney Disease: Less than 60 mL/min/1.73 square meters End Stage Renal Disease: Less than 15 mL/min/1.73 square meters Performed By: #### F ERR, MG, TSH, GFR, FT4, FES, VIDH, BMP #### [address] [address] #### B12 #### [address] [address] GFR 101 ml/min/1.73sqm Normal [facility] ([place]) Comment on above: Result Comment: GFR Population mean for , Non- Americans Ages 20-29 = 116 mL/min/1.73 sq.m. Ages 30-39 = 107 mL/min/1.73 sq.m. Ages 40-49 = 99 mL/min/1.73 sq.m. Ages 50-59 = 93 mL/min/1.73 sq.m. Ages 60-69 = 85 mL/min/1.73 sq.m. Ages 70+ = 75 mL/min/1.73 sq.m. Chronic Kidney Disease: Less than 60 mL/min/1.73 square meters End Stage Renal Disease: Less than 15 mL/min/1.73 square meters Performed By: #### F ERR, MG, TSH, GFR, FT4, FES, VIDH, BMP #### [place] [address] #### B12 #### [address] [address] .NEUABSon 03-01-2022 Neutrophil, Absolute 13.6 10 3/mcL High 2.9-6.2 A [facility] ([place]) Comment on above: Performed By: #### F ERR, MG, TSH, GFR, FT4, FES, VIDH, BMP #### [place] [address] #### B12 #### [address] 03-01-2022 BUN/Creatinine Ratio 19 ratio Normal 7-27 [facility] ([place] Comment on above: Performed By: #### F ERR, MG, TSH, GFR, FT4, FES, VIDH, BMP #### [place] [address] #### B12 #### [place] [address] Calcium [Mass/Vol] 9.8 mg/dL Normal 8.4-10.2 [facility] ([place]) Comment on above: Performed By: #### F ERR, MG, TSH, GFR, FT4, FES, VIDH, BMP #### [place] [address] #### B12 #### [place] [address] Chloride [Moles/Vol] 103 mmol/L Normal 98-107 [facility] ([place] Comment on above: Performed By: #### F ERR, MG, TSH, GFR, FT4, FES, VIDH, BMP #### [place] [address] #### B12 #### [place] [address] CO2 [Moles/Vol] 32 mmol/L High 23-31 [facility] ([place] Comment on above: Performed By: #### F ERR, MG, TSH, GFR, FT4, FES, VIDH, BMP #### [address] [address] #### B12 #### [address] [address] Creatinine [Mass/Vol] 0.70 mg/dL Normal 0.55-1.02 [facility] ([place]) Comment on above: Performed By: #### F ERR, MG, TSH, GFR, FT4, FES, VIDH, BMP #### [place] [address] #### B12 #### [place] [address] Electrolyte Balance 9.0 mEq/L Normal 4.0-15.0 [facility] ([place]) Comment on above: Performed By: #### F ERR, MG, TSH, GFR, FT4, FES, VIDH, BMP #### [place] [address] #### B12 #### [place] [address] Glucose [Mass/Vol] 100 mg/dL Normal 80-115 [facility] ([place] Comment on above: Performed By: #### F ERR, MG, TSH, GFR, FT4, FES, VIDH, BMP #### [place] [address] #### B12 #### [address] [address] Potassium [Moles/Vol] 4.5 mmol/L Normal 3.5-5.1 [facility] ([place] Comment on above: Performed By: #### F ERR, MG, TSH, GFR, FT4, FES, VIDH, BMP #### [place] [address] #### B12 #### [place] [address] Sodium [Moles/Vol] 144 mmol/L Normal 136-145 [facility] ([place] Comment on above: Performed By: #### F ERR, MG, TSH, GFR, FT4, FES, VIDH, BMP #### [address] [address] #### B12 #### [place] [address] Urea nitrogen [Mass/Vol] 13 mg/dL Normal 7-18 [facility] ([place] Comment on above: Performed By: #### F ERR, MG, TSH, GFR, FT4, FES, VIDH, BMP #### [place] [address] #### B12 #### [place] [address] CBCon 03-01-2022 Erythrocyte distribution width (RBC) [Ratio] 13.6 % Normal 11.5-14.5 [facility] ([place] Comment on above: Performed By: #### F ERR, MG, TSH, GFR, FT4, FES, VIDH, BMP #### [place] [address] #### B12 #### [place] [address] Hematocrit (Bld) [Volume fraction] 48.7 % High 37.0-47.0 [facility] ([place] Comment on above: Performed By: #### F ERR, MG, TSH, GFR, FT4, FES, VIDH, BMP #### [place] [address] #### B12 #### [place] [address] Hgb 15.8 G/dL Normal 12.0-16.0 [facility] ([place] Comment on above: Performed By: #### F ERR, MG, TSH, GFR, FT4, FES, VIDH, BMP #### [place] [address] #### B12 #### [place] [address] MCH (RBC) [Entitic mass] 28.8 pg Normal 27.0-31.2 [facility] ([place] Comment on above: Performed By: #### F ERR, MG, TSH, GFR, FT4, FES, VIDH, BMP #### [place] [address] #### B12 #### [place] [address] MCHC 32.4 G/dL Low 33.0-37.0 [facility] ([place] Comment on above: Performed By: #### F ERR, MG, TSH, GFR, FT4, FES, VIDH, BMP #### [place] [address] #### B12 #### [place] [address] MCV (RBC) [Entitic vol] 89.0 fL Normal 80.0-94.0 A [facility] ([place] Comment on above: Performed By: #### F ERR, MG, TSH, GFR, FT4, FES, VIDH, BMP #### [place] [address] #### B12 #### [place] [address] Platelet 289 10 3/mcL Normal 130-400 [facility] ([place] Comment on above: Performed By: #### F ERR, MG, TSH, GFR, FT4, FES, VIDH, BMP #### [place] [address] #### B12 #### [place] [address] Platelet mean volume (Bld) [Entitic vol] 8.6 fL Normal 7.4-10.4 [facility] ([place] Comment on above: Performed By: #### F ERR, MG, TSH, GFR, FT4, FES, VIDH, BMP #### [place] [address] #### B12 #### [place] [id number] RBC 5.47 10 6/mcL High 4.20-5.40 [facility] ([place] Comment on above: Performed By: #### F ERR, MG, TSH, GFR, FT4, FES, VIDH, BMP #### [address] [address] #### B12 #### [place] [address] WBC 17.5 10 3/mcL High 4.6-10.8 [facility] ([place] Comment on above: Performed By: #### F ERR, MG, TSH, GFR, FT4, FES, VIDH, BMP #### [place] [address] #### B12 #### [place] [address] Ronald 03-01-2022 Ferritin [Mass/Vol] 46.0 ng/mL Normal 8.0-252.0 [facility] ([place] Comment on above: Performed By: #### F ERR, MG, TSH, GFR, FT4, FES, VIDH, BMP #### [place] [address] #### B12 #### [place] [address] FESon 03-01-2022 Iron [Mass/Vol] 47 ug/dL Low 50-170 [facility] ([place] Comment on above: Performed By: #### F ERR, MG, TSH, GFR, FT4, FES, VIDH, BMP #### [place] [address] #### B12 #### [place] [address] Iron Sat 13 % Normal [facility] ([place] Comment on above: Performed By: #### F ERR, MG, TSH, GFR, FT4, FES, VIDH, BMP #### [place] [address] #### B12 #### [place] [address] TIBC 357 mcg/dL Normal 250-450 [facility] ([place] Comment on above: Performed By: #### F ERR, MG, TSH, GFR, FT4, FES, VIDH, BMP #### [address] [address] #### B12 #### [place] [address] FT4on 03-01-2022 Free T4 [Mass/Vol] 1.25 ng/dL Normal 0.76-1.46 [facility] ([place]) Comment on above: Performed By: #### F ERR, MG, TSH, GFR, FT4, FES, VIDH, BMP #### [address] [address] #### B12 #### [place] [address] MGon 03-01-2022 Magnesium [Mass/Vol] 1.8 mg/dL Normal 1.8-2.4 [facility] ([place] Comment on above: Performed By: #### F ERR, MG, TSH, GFR, FT4, FES, VIDH, BMP #### [place] [address] #### B12 #### [place] [address] TSHon 03-01-2022 TSH Qn 0.91 m[IU]/L Normal 0.36-3.74 [facility] ([place] Comment on above: Performed By: #### F ERR, MG, TSH, GFR, FT4, FES, VIDH, BMP #### [address] [address] #### B12 #### [place] [address] VIDHon 03-01-2022 Vit. D 25-Hydroxy 11.9 ng/mL Normal [facility] ([place] Comment on above: Result Comment: Inte rpretive Values Based on Total 25(OH) Vitamin D: Deficient <20 ng/mL Insufficient 20 - <30 ng/mL Sufficient 30-100 ng/mL Performed By: #### F ERR, MG, TSH, GFR, FT4, FES, VIDH, BMP #### [place] [address] #### B12 #### [address] [address] .Auto Diffon 08-19-2021 Basophil, Absolute 0.10 10 3/mcL Normal 0.00-0.19 [facility] ([place] Comment on above: Performed By: #### F ERR, MG, TSH, GFR, FT4, FES, VIDH, BMP #### [place] [address] #### B12 #### [address] [address] Basophils/100 WBC (Bld) 0.7 % Normal 0.0-2.5 A [facility] ([place]) Comment on above: Performed By: #### F ERR, MG, TSH, GFR, FT4, FES, VIDH, BMP #### [place] [address] #### B12 #### [address] [address] Eosinophil, Absolute 0.10 10 3/mcL Normal 0.00-0.40 A [facility] ([place] Comment on above: Performed By: #### F ERR, MG, TSH, GFR, FT4, FES, VIDH, BMP #### [place] [address] #### B12 #### [address] [address] Eosinophils/100 WBC (Bld) 0.9 % Normal 0.0-7.0 [facility] ([place] Comment on above: Performed By: #### F ERR, MG, TSH, GFR, FT4, FES, VIDH, BMP #### [place] [address] #### B12 #### [address] [address] Lymphocyte, Absolute 3.20 10 3/mcL Normal 0.77-3.85 A [facility] ([place] Comment on above: Performed By: #### F ERR, MG, TSH, GFR, FT4, FES, VIDH, BMP #### [address] [address] #### B12 #### [address] [address] Lymphocytes/100 WBC (Bld) 21.7 % Normal 10.0-50.0 [facility] ([place]) Comment on above: Performed By: #### F ERR, MG, TSH, GFR, FT4, FES, VIDH, BMP #### [place] [address] #### B12 #### [address] [address] Monocyte, Absolute 1.00 10 3/mcL Normal 0.15-1.00 [facility] ([place] Comment on above: Performed By: #### F ERR, MG, TSH, GFR, FT4, FES, VIDH, BMP #### [place] [address] #### B12 #### [address] [address] Monocytes/100 WBC (Bld) 6.5 % Normal 1.7-13.0 A [facility] ([place] Comment on above: Performed By: #### F ERR, MG, TSH, GFR, FT4, FES, VIDH, BMP #### [place] [address] #### B12 #### [address] [address] [address] Neutrophils/100 WBC (Bld) 70.2 % Normal 37.0-80.0 [facility] [place] Comment on above: Performed By: #### F ERR, MG, TSH, GFR, FT4, FES, VIDH, BMP #### [place] [address] #### B12 #### [address] [address] .GFRon 08-19-2021 GFR 112 ml/min/1.73sqm Normal [facility] [place] Comment on above: Result Comment: GFR Population mean for , Non- Americans Ages 20-29 = 116 mL/min/1.73 sq.m. Ages 30-39 = 107 mL/min/1.73 sq.m. Ages 40-49 = 99 mL/min/1.73 sq.m. Ages 50-59 = 93 mL/min/1.73 sq.m. Ages 60-69 = 85 mL/min/1.73 sq.m. Ages 70+ = 75 mL/min/1.73 sq.m. Chronic Kidney Disease: Less than 60 mL/min/1.73 square meters End Stage Renal Disease: Less than 15 mL/min/1.73 square meters Performed By: #### F ERR, MG, TSH, GFR, FT4, FES, VIDH, BMP #### [address] [address] #### B12 #### [address] [address] GFR Non- 93 ml/min/1.73sqm Normal [facility] [place] Comment on above: Result Comment: GFR Population mean for , Non- Americans Ages 20-29 = 116 mL/min/1.73 sq.m. Ages 30-39 = 107 mL/min/1.73 sq.m. Ages 40-49 = 99 mL/min/1.73 sq.m. Ages 50-59 = 93 mL/min/1.73 sq.m. Ages 60-69 = 85 mL/min/1.73 sq.m. Ages 70+ = 75 mL/min/1.73 sq.m. Chronic Kidney Disease: Less than 60 mL/min/1.73 square meters End Stage Renal Disease: Less than 15 mL/min/1.73 square meters Performed By: #### F ERR, MG, TSH, GFR, FT4, FES, VIDH, BMP #### [address] [address] #### B12 #### [place] [id number] .NEUABSon 08-19-2021 Neutrophil, Absolute 10.30 10 3/mcL High 2.85-6.16 [facility] Comment on above: Performed By: #### F ERR, MG, TSH, GFR, FT4, FES, VIDH, BMP #### [place] [address] #### B12 #### [place] [address] CBCon 08-19-2021 Erythrocyte distribution width (RBC) [Ratio] 13.4 % Normal 11.5-14.5 [facility] ([place]) Comment on above: Performed By: #### F ERR, MG, TSH, GFR, FT4, FES, VIDH, BMP #### [place] [address] #### B12 #### [place] [address] Hematocrit (Bld) [Volume fraction] 46.6 % Normal 37.0-47.0 [facility] Comment on above: Performed By: #### F ERR, MG, TSH, GFR, FT4, FES, VIDH, BMP #### [place] [address] #### B12 #### [place] [address] Hgb 15.1 G/dL Normal 12.0-16.0 [facility] [place] Comment on above: Performed By: #### F ERR, MG, TSH, GFR, FT4, FES, VIDH, BMP #### [place] [address] #### B12 #### [place] [address] MCH (RBC) [Entitic mass] 27.6 pg Normal 27.0-31.2 [facility] [place] Comment on above: Performed By: #### F ERR, MG, TSH, GFR, FT4, FES, VIDH, BMP #### [place] [id number] #### B12 #### [place] [address] MCHC 32.4 G/dL Low 33.0-37.0 [facility] [place] Comment on above: Performed By: #### F ERR, MG, TSH, GFR, FT4, FES, VIDH, BMP #### [place] [address] #### B12 #### [place] [address] MCV (RBC) [Entitic vol] 85.4 fL Normal 80.0-94.0 A [facility] ([place]) Comment on above: Performed By: #### F ERR, MG, TSH, GFR, FT4, FES, VIDH, BMP #### [place] [address] #### B12 #### [place] [address] Platelet 354 10 3/mcL Normal 130-400 [facility] [place] Comment on above: Performed By: #### F ERR, MG, TSH, GFR, FT4, FES, VIDH, BMP #### [place] [address] #### B12 #### [place] [address] Platelet mean volume (Bld) [Entitic vol] 8.5 fL Normal 7.4-10.4 [facility] [place] Comment on above: Performed By: #### F ERR, MG, TSH, GFR, FT4, FES, VIDH, BMP #### [place] [address] #### B12 #### [place] [address] RBC 5.46 10 6/mcL High 4.20-5.40 [facility] [place] Comment on above: Performed By: #### F ERR, MG, TSH, GFR, FT4, FES, VIDH, BMP #### [place] [address] #### B12 #### [place] [address] WBC 14.60 10 3/mcL High 4.60-10.80 [facility] [place] Comment on above: Performed By: #### F ERR, MG, TSH, GFR, FT4, FES, VIDH, BMP #### [place] [address] #### B12 #### [place] [address] CMPon 08-19-2021 Albumin Level 4.2 G/dL Normal 3.4-4.8 [facility] [place] Comment on above: Performed By: #### F ERR, MG, TSH, GFR, FT4, FES, VIDH, BMP #### [place] [address] #### B12 #### [place] [address] Albumin/Globulin [Mass ratio] 1.3 {ratio} Normal 1.1-2.5 [facility] [place] Comment on above: Performed By: #### F ERR, MG, TSH, GFR, FT4, FES, VIDH, BMP #### [place] [address] #### B12 #### [place] [address] ALP [Catalytic activity/Vol] 101 U/L Normal 40-135 [facility] [place] Comment on above: Performed By: #### F ERR, MG, TSH, GFR, FT4, FES, VIDH, BMP #### [place] [address] #### B12 #### [place] [address] ALT [Catalytic activity/Vol] 23 U/L Normal 14-59 [facility] [place] Comment on above: Performed By: #### F ERR, MG, TSH, GFR, FT4, FES, VIDH, BMP #### [place] [id number] #### B12 #### [address] [address] AST [Catalytic activity/Vol] 17 U/L Normal 10-40 [facility] [place] Comment on above: Performed By: #### F ERR, MG, TSH, GFR, FT4, FES, VIDH, BMP #### [place] [address] #### B12 #### [place] [address] Bili Total 0.8 mg/dL Normal 0.2-1.0 [facility] [place] Comment on above: Result Comment: Use of this assay is not recommended for patients undergoing treatment with eltrombopag due to the potential for falsely elevated results. Performed By: #### F ERR, MG, TSH, GFR, FT4, FES, VIDH, BMP #### [place] [address] #### B12 #### [place] [address] BUN/Creatinine Ratio 14 ratio Normal 7-27 [facility] ([place]) Comment on above: Performed By: #### F ERR, MG, TSH, GFR, FT4, FES, VIDH, BMP #### [place] [address] #### B12 #### [place] [id number] Calcium [Mass/Vol] 9.8 mg/dL Normal 8.4-10.2 [facility] ([place]) Comment on above: Performed By: #### F ERR, MG, TSH, GFR, FT4, FES, VIDH, BMP #### [place] [address] #### B12 #### [place] [address] Chloride [Moles/Vol] 102 mmol/L Normal 98-107 [facility] ([place] Comment on above: Performed By: #### F ERR, MG, TSH, GFR, FT4, FES, VIDH, BMP #### [place] [address] #### B12 #### [place] [address] CO2 [Moles/Vol] 32 mmol/L High 23-31 [facility] Comment on above: Performed By: #### F ERR, MG, TSH, GFR, FT4, FES, VIDH, BMP #### [place] [address] #### B12 #### [place] [address] Creatinine [Mass/Vol] 0.64 mg/dL Normal 0.55-1.02 [facility] ([place]) Comment on above: Performed By: #### F ERR, MG, TSH, GFR, FT4, FES, VIDH, BMP #### [place] [address] #### B12 #### [place] [address] Electrolyte Balance 6.0 mEq/L Normal 4.0-15.0 [facility] ([place]) Comment on above: Performed By: #### F ERR, MG, TSH, GFR, FT4, FES, VIDH, BMP #### [place] [address] #### B12 #### [place] [address] Globulin 3.2 G/dL Normal [facility] [place] Comment on above: Performed By: #### F ERR, MG, TSH, GFR, FT4, FES, VIDH, BMP #### [place] [address] #### B12 #### [place] [address] Glucose [Mass/Vol] 99 mg/dL Normal 80-115 [facility] ([place] Comment on above: Performed By: #### F ERR, MG, TSH, GFR, FT4, FES, VIDH, BMP #### [place] [address] #### B12 #### [address] [address] Potassium [Moles/Vol] 4.7 mmol/L Normal 3.5-5.1 [facility] ([place] Comment on above: Performed By: #### F ERR, MG, TSH, GFR, FT4, FES, VIDH, BMP #### [place] [address] #### B12 #### [place] [address] Sodium [Moles/Vol] 140 mmol/L Normal 136-145 [facility] ([place] Comment on above: Performed By: #### F ERR, MG, TSH, GFR, FT4, FES, VIDH, BMP #### [place] [address] #### B12 #### [place] [address] Total Protein 7.4 G/dL Normal 6.4-8.2 [facility] [place] Comment on above: Performed By: #### F ERR, MG, TSH, GFR, FT4, FES, VIDH, BMP #### [place] [address] #### B12 #### [place] [address] Urea nitrogen [Mass/Vol] 9 mg/dL Normal 7-18 [facility] [place] Comment on above: Performed By: #### F ERR, MG, TSH, GFR, FT4, FES, VIDH, BMP #### [place] [address] #### B12 #### [address] [address] LIPIDon 08-19-2021 Cholesterol [Mass/Vol] 185 mg/dL Normal 0-200 [facility] ([place]) Comment on above: Result Comment: Chol esterol Reference Interval: Less than 200 Desirable 200-239 Borderline high risk 240 and above High risk Performed By: #### F ERR, MG, TSH, GFR, FT4, FES, VIDH, BMP #### [address] [address] #### B12 #### [address] [address] Cholesterol in HDL [Mass/Vol] 50 mg/dL Normal 40-60 [facility] [place] Comment on above: Performed By: #### F ERR, MG, TSH, GFR, FT4, FES, VIDH, BMP #### [place] [address] #### B12 #### [address] [address] Cholesterol in LDL [Mass/Vol] 102 mg/dL Normal 0-130 [facility] [place] Comment on above: Performed By: #### F ERR, MG, TSH, GFR, FT4, FES, VIDH, BMP #### [place] [address] #### B12 #### [address] [address] Triglyceride [Mass/Vol] 166 mg/dL High 0-150 A [facility] ([place] Comment on above: Result Comment: Trig lyceride Reference Interval: Less than 150 Normal 150-199 Borderline high risk 200-499 High risk 500 or higher Very high risk Performed By: #### F ERR, MG, TSH, GFR, FT4, FES, VIDH, BMP #### [place] [address] #### B12 #### [address] [address] Vital Signs Date Time Vital Sign Value Performing Clinician Facility 01-13-2025 14:00-0400 Diastolic blood pressure 75 mm[Hg] Dr. Bay Miller MD Work Phone: [facility] 01-13-2025 14:00-0400 Heart rate 105 /min Dr. Bay Miller MD Work Phone: [facility] 01-13-2025 14:00-0400 SaO2% (BldA) [Mass fraction] 96 % Dr. Bay Miller MD Work Phone: [facility] 01-13-2025 14:00-0400 Systolic blood pressure 144 mm[Hg] Dr. Bay Miller MD Work Phone: [facility] 01-13-2025 12:43-0400 Respiratory rate 21 /min Dr. Bay Miller MD Work Phone: [facility] 01-13-2025 12:42-0400 Body temperature 97.9 [degF] Dr. Bay Miller MD Work Phone: [facility] 01-13-2025 12:26-0400 Inhaled oxygen concentration 21 % Dr. Bay Miller MD Work Phone: [facility] 01-13-2025 11:08-0400 Body mass index (BMI) [Ratio] 23.5 kg/m2 Dr. Bay Miller MD Work Phone: [facility] 01-13-2025 11:08-0400 Body weight 56.[address] Bay Miller MD Work Phone: [facility] 01-13-2025 10:15-0400 Body height 154.[address] Bay Miller MD Work Phone: [facility] 04-13-2022 13:55-0400 Body height 157.[address] Kayla Chavez Work Phone: [facility] Work Phone: 04-13-2022 13:55-0400 Body mass index (BMI) [Ratio] 20.2 kg/m2 Dr. Kayla Chavez Work Phone: [facility] Work Phone: 04-13-2022 13:55-0400 Body temperature 97.6 [degF] Dr. Kayla Chavez Work Phone: [facility] Work Phone: 04-13-2022 13:55-0400 Body weight 50.[address] Kayla Chavez Work Phone: [facility] Work Phone: 04-13-2022 13:55-0400 Diastolic blood pressure 67 mm[Hg] Dr. Kayla Chavez Work Phone: [facility] Work Phone: 04-13-2022 13:55-0400 Heart rate 88 /min Dr. Kayla Cahvez Work Phone: [facility] Work Phone: 04-13-2022 13:55-0400 Respiratory rate 16 /min Dr. Kayla Chavez Work Phone: [facility] Work Phone: 04-13-2022 13:55-0400 SaO2% (BldA) [Mass fraction] 90 % Dr. Kayla Chavez Work Phone: [facility] Work Phone: 04-13-2022 13:55-0400 Systolic blood pressure 110 mm[Hg] Dr. Kayla Chavez Work Phone: [facility] Work Phone: Encounters Encounter Date Encounter Type Care Provider Facility Start: 01-13-2025 Evaluation and management of inpatient Dr. Hai Nicolas DO -Progressive Care Unit Work Phone: Start: 05-25-2022 ambulatory Efewongbe Oleghe [facility] Start: 05-09-2022 ambulatory Efewongbe Oleghe [facility] Start: 04-14-2022 End: 04-14-[address] Kayla Chavez Work Phone: [facility] Work Phone: Start: 04-14-2022 End: 04-14-[address] Kayla Chavez Work Phone: [facility]-Laboratory, Specimen Start: 04-13-2022 End: 04-13-2022 ambulatory Kayla Chavez Facility:[facility] Start: 04-13-2022 End: 04-13-[address] Kayla Chavez Work Phone: [facility] Start: 03-01-2022 End: 03-02-2022 ambulatory REINALDO VALLEJO DO Facility:[facility] Start: 08-19-2021 End: 08-20-[address] KAYLA CHAVEZ MD. Facility:[facility] Procedures Date Procedure Procedure Detail Performing Clinician Start: 01-13-2025 X-ray of chest, PA a nd lateral views Dr. Bay Miller MD Work Phone: Start: 01-13-2025 D-dimer assay, quantitative Dr. Bay Miller MD Work Phone: Comment on above: NORMAL D-Dimer level (<0.50) indicates no DVT or PE. Start: 01-13-[address] Bay Miller MD Work Phone: Clostridium difficil e detection Dr. Kayla Chavez Work Phone: Lactoferrin measurement Dr. Kayla Chavez Work Phone: Measurement of occul t blood in stool specimen using immunoassay Dr. Kayla Chavez Work Phone: Plan of Treatment Date Care Activity Detail Author Start: 01-13-2025 Verification routine [facility] Start: 01-13-2025 Admission procedure [facility] Start: 01-13-2025 Hospital admission, emergency, from emergency room, medical nature [facility] Start: 01-13-2025 Gas panel - Arterial blood [facility] Start: 01-13-2025 Dual pressure sponta neous ventilation support [facility] Start: 01-13-2025 Continuous pulse oximetry [facility] Start: 01-13-2025 [facility] Start: 04-13-2022 Patient referral [facility] Work Phone: Patient referral [facility] Work Phone: Payers Date Payer Category Payer Self-pay 2021 Unknown [id number] 2013 Unknown [id number] 1955 Unknown [id number] 2.16.8 [id number] 1955 Unknown [id number] 2.16.8 [id number] Unknown [id number] 2.16.8 [id number] Unknown [id number] 2.16.8 [id number] Unknown [id number] 2.16.8 [id number] Unknown [id number] 2.16.8 [id number] Unknown [id number] 2.16.8 [id number] Social History Date Type Detail Facility Start: 04-13-2022 [facility] Work Phone: Start: 1955 Sex Assigned At Female [facility] Start: 01-13-2025 [facility] daily (finding) [facility] Radiology Diagnostic study note 01-13-2025 Note Date & Type Note Facility 01-13-2025 Radiology Diagnostic study note [facility] Imaging Services [address] [place], [place] [address] Chest PA and Lateral MR#: [id number] Acct: [id number] Name: SUSHANT MEDEIROS Rep #: [id number] : 1955 F 69 From: Julian De La Torre MD PCP: Dr. Bay Miller MD Status: R EG ER Study:Chest PA and Lateral Date of Exam: 01/13/25 Exam# [id number] Ordering Dr: Marc Patel DO PROCEDURE: CHEST PA AND LATERAL 01/13/2025 REASON FOR EXAM: SHORTNESS OF BREATH TECHNIQUE: CHEST PA AND LATERAL COMPARISON: None. FINDINGS: LUNGS AND PLEURA: No focal airspace consolidation. Minimal strandy opacity in the left lung base, likely atelectasis/scarring. No pleural effusion or pneumothorax. HEART AND MEDIASTINUM: The heart size and mediastinal contours are normal. AORTA: Calcified thoracic aorta. BONES: No acute osseous abnormality. OTHER: Small to moderate-sized hiatal hernia noted. RAD/Chest PA and Lateral IMPRESSION: NO ACUTE FINDINGS. Reading Location: [id number] CC: Dr. Marc Delgadillo DO; Dr. Bay Miller MD ~ Darkroom Technician: Signed [facility] Evaluation note Note Date & Type Note Facility Evaluation note Diagnosis Onset Date Dark stools acute Tobacco abuse acute Unintentional weight loss of 10% body weight within 6 months acute Chronic diarrhea chronic Generalized anxiety disorder with panic attacks chronic Hypertension chronic [facility] Work Phone: Evaluation note Note Date & Type Note Facility Evaluation note No assessment information availa ble [facility] Work Phone: Reason for referral (narrative) Note Date & Type Note Facility Reason for referral (narrative) No reason for referral information available [facility] Work Phone: Summary Purpose Family History Relationship Condition Age at Onset Recorded Date/T gonzález Not Specified High blood cholesterol Unknown Anxiety Unknown Cardiac disease Unknown sister Arthritis Unknown mother Myocardial infarction Unknown Advance Directives Advance Directive Response Recorded Date/ Time Do you have a Healthcare Power of Illusionist? 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 Reason for Visit Dark stools Tobacco abuse Unintentional weight loss of 10% body weight within 6 months Chronic diarrhea Generalized anxiety disorder with panic attacks Hypertension Chief Complaint Admit Date COPD EXACERBATION January 13, 2025 2:1 2pm Additional Source Comments INFORMATION SOURCE (unrecogn ized section and content) DATE CREATED AUTHOR 03/13/2022 [facility] ([place]) DATE CREATED AUTHOR AUTHOR'S MAURILIO ATION [facility] Goals (unrecognized section and content) Goals may be documented in a n alternate sectionGoals may be documented in an alternate section Care Teams (unrecognized sec tion and content) Team Status: Active Member Role/Relationship Status Dates Dr. Bay Miller MD Primary Care Provider Active Team Status: Active Member Role/Relationship Status Dates Dr. Bay Miller MD Primary Care Provider Active Start: January 13, 2025 Dr. Marc Delgadillo , Emergency Provider Activ e Start: January 13, 2025 Dr. Hai Nicolas , Admit Provider Active S tart: January 13, 2025 Dr. Hai Nicolas , Attending Provider Active Start: January 13, 2025 FOR RECORDS PERTAINING TO PATIENTS WHO ARE OR HAVE BEEN ENROLLED IN A CHEMICAL DEPENDENCY/SUBSTANCEABUSE PROGRAM, SOME INFORMATION MAY BE OMITTED. This clinical summary was aggregated from multiple sources. Caution should be exercised in using it in the provision of clinical care. This summary normalizes information from multiple sources, and as a consequence, information in this document may materially change the coding, format and clinical context of patient data. In addition, data may be omitted in some cases. CLINICAL DECISIONS SHOULD BE BASED ON THE PRIMARY CLINICAL RECORDS. [employer] provides no warranty or guarantee of the accuracy or completeness of information in this document.
[2025-01-14] VITALS (8 sets, daily range): BP systolic 130–170; BP diastolic 79–85; PULSE 83–103; RESP 18–20; TEMP 35.5–36.6; O2SAT 94–98
[2025-01-14] MEDS: 0.9% Saline Lock 10 ML Syringe IV (05:59)
[2025-01-14] MEDS: Heparin Injection (Vial) 5,000 UNIT/ML VIAL 5000 UNIT SC ×2 (08:59→20:44)
[2025-01-14] MEDS: hydrOXYzine PAM 25 MG Capsule 50 MG PO ×4 (10:24→23:14)
--- NOTE | 2025-01-14 11:37 | CHAPLAIN ---
Type of Pastoral Visit _x__ Initial Visit ___ Follow-up Visit ___ On-call Visit ___ General Patient Visit ___ Spiritual Assessment ___ Family Conference ___ Bereavement ___ Rapid Response ___ Code Blue ___ Other (describe below) Pastoral Care Referral From _x__ Patient ___ Family ___ Nurse ___ Physician ___ Railroad Brake Operator ___ Filling Machine Tender ___ Other (describe below) Sacrament/Intervention ___ Active listening ___ Anointing ___ Yarsani ___ Bereavement ___ Communion ___ Jolie exploration ___ ___ Life review ___ Prayer ___ Reconciliation ___ Sacrament of Sick _x__ Supportive presence ___ Wedding ___ Other (describe below) Pastoral Comments patient is quietly resting in bed; pt is welcoming and states her situation; pt acknowledges that she is beginning to feel some better; pt states that she would like to take a nap at this time and so the visit ends
--- NOTE | 2025-01-14 15:00 | CASEMGMT ---
HERNAN ELIZABETH Face to Face with patient for initial transition planning/care coordination assessment. RN CM introduced self and role at [facility]. Patient lying in bed, alert and oriented. Patient willing to participate in assessment and is able to answer all questions appropriately. Care providers, pharmacy, and demographics verified. Strata: 1 PCP: None, PCP list provided Specialists: None Preferred Pharmacy: [facility] Insurance: [place] [facility] Prescription Benefit: yes Living Will/HPOA: none LNOK: sister Living Arrangements: Patient lives with significant other in a 2 story home. Patient is independent and was able to ambulate stairs prior to respiratory issues. Transportation: self, significant other DME/HHC: Michel owns her own POC that goes up to 3lpm and pulse ox. No previous HHC or SNF. Will monitor for increase in home oxygen. Patient wishes to discharge home, denies need for home health at this time. Patient states she has no further needs or concerns at this time. CM to follow for discharge planning needs that may arise. Disposition Plan: Patient to discharge home with family support and follow-up plans in place. Will monitor for increase in home oxygen. Funmilayo DIAZ, RN, CM
--- NOTE | 2025-01-14 15:53 | PCM.PN.HOSP ---
Reason for Visit Chief Complaint: Shortness of breath Subjective Subjective Patient was seen and examined today, she is currently on 2 L of oxygen and appears comfortable. Objective Data Objective Data Vital Signs: Vital Signs Temp Pulse Resp BP Pulse Ox O2 Del Method O2 Flow Rate 97.8 F 96 20 H 166/83 H 94 Nasal Cannula 2 01/14/25 14:21 01/14/25 14:33 01/14/25 14:33 01/14/25 14:21 01/14/25 14:21 01/14/25 14:30 01/14/25 14:30 FiO2 21 01/13/25 12:26 Oxygen Flow Rate (L/min) 2 Oxygen Delivery Method Nasal Cannula Weight: 55.8 kg Body Mass Index (BMI) 23.2 Intake & Output: Intake and Output for Last 24 Hours 01/12/25 01/13/25 01/14/25 23:59 23:59 23:59 Intake Total 500 / 850 750 / 750 Balance 500 / 850 750 / 750 Lab / Micro Data 01/13/25 10:28 01/13/25 10:28 Labs: Laboratory Results - last 24 hr 01/13/25 16:09: Troponin T Hi Sens 4Hr 21 H Physical Exam Const alert, oriented x3 and no apparent distress General Appearance: cooperative, well kempt and well developed Orientation / Consciousness: awake, oriented to person, oriented to place and oriented to time HEENT normocephalic, head/scalp atraumatic and moist oral mucous membranes Eyes PERRL, EOMs intact bilaterally and conjunctivae normal Neck supple, no JVD, thyroid normal and no carotid bruits General: trachea midline Resp normal respiratory effort Resp Narrative: There are expiratory wheezing noted over all lung pettit Auscultation: wheezes expiratory wheezes and throughout; Negative for rales or rhonchi Cardio regular rate, regular rhythm, S1 normal heart sound, S2 normal heart sound, no murmurs, no rub and no gallops GI normal to inspection, nondistended, normoactive bowel sounds, soft to palpation, non-tender and non-distended Extremity no clubbing, cyanosis or edema Skin no rashes or lesions noted General Skin Exam: no breakdown Neuro oriented x3, CN's II-XII intact bilaterally, moves all extremities, no focal motor deficits and no sensory deficits noted Sensorium / Orientation: awake and alert Speech: speech normal Psych affect normal Assessment & Plan Assessment/Plan (1) COPD with exacerbation: PLAN: Plan 1. Exacerbation of COPD-continue present treatment including p.o. Zithromax, IV Solu-Medrol, and aerosol treatments #2 hypoxia secondary to #1-patient's pulse ox will be monitored, oxygen will be weaned if possible #3 noncompliance with medical treatment-patient does not follow-up on a regular basis with a physician, she had been on several medications in the past including inhalers. Total clinical time spent by myself addressing patient's medical issues, reviewing all of her data, and collaborating with patient's care team: 35 minutes Charges/Coding Visit Charges Inpatient E&M: 47726 Subs Hosp L2
[2025-01-15 05:45] VITALS: BP 147/86; PULSE 83; RESP 18; TEMP 35.7; O2SAT 95
[2025-01-15] MEDS: hydrOXYzine PAM 25 MG Capsule 50 MG PO ×2 (05:54→11:48)
[2025-01-15 06:58] VITALS: PULSE 85; RESP 18; O2SAT 94
[2025-01-15] MEDS: Heparin Injection (Vial) 5,000 UNIT/ML VIAL 5000 UNIT SC (10:05)
[2025-01-15 10:22] VITALS: PULSE 86; RESP 18
[2025-01-15 10:53] VITALS: O2SAT 95
[2025-01-15 11:09] VITALS: BP 139/76; PULSE 95; RESP 18; TEMP 36.7; O2SAT 95
--- NOTE | 2025-01-15 12:18 | DCINST_ITS ---
Discharge Instructions DC O2, CPAP, BIPAP needs Home O2 Discharge instructions: No Dressing / Incision Discharge Activity: Return to Normal Activity Weight Bearing Status: Full weight bearing Follow Up Care Test Results: Test results from this visit will be discussed in further detail at your follow- up appointment, if applicable. Discharge Plan Admission Admit Date/Time: 01/13/25 14:12 Primary Reason for Your Visit: Exacerbation of COPD Attending Provider: Hai Nicolas Primary Care Provider: Bay Miller Discharge Orders/Prescriptions Prescriptions: No Action NK Referrals / Follow Up: Bay Miller MD [Primary Care Provider] -
--- NOTE | 2025-01-15 12:18 | PCM.DC ---
Discharge Instructions DC O2, CPAP, BIPAP needs Home O2 Discharge instructions: No Dressing / Incision Discharge Activity: Return to Normal Activity Weight Bearing Status: Full weight bearing Follow Up Care Test Results: Test results from this visit will be discussed in further detail at your follow-up appointment, if applicable. Discharge Plan Admission Admit Date/Time: 01/13/25 14:12 Primary Reason for Your Visit: Exacerbation of COPD Attending Provider: Hai Nicolas Primary Care Provider: Bay Miller Discharge Orders/Prescriptions Prescriptions: New budesonide-formoterol [Symbicort] 160-4.5 mcg/actuation HFA aerosol inhaler 2 puff inhalation BID Qty: 10.2 0RF Rx Instructions: Rinse out mouth after use prednisone 20 mg tablet 20 mg PO BID Qty: 20 0RF albuterol sulfate [Ventolin HFA] 90 mcg/actuation HFA aerosol inhaler 2 puff inhalation Q6H PRN (Reason: shortness of breath or wheezing) Qty: 6.7 0RF hydroxyzine pamoate [Vistaril] 25 mg capsule 75 mg PO TID PRN (Reason: anxiety) Qty: 60 0RF Rx Instructions: 2 to 3 capsules 3 times a day as needed for anxiety Referrals / Follow Up: Bay Miller MD [Primary Care Provider] - Within 2 Weeks Disposition Disposition (needs filled in before D/C Order can be placed): Home, Self Care
--- NOTE | 2025-01-15 12:24 | PCM.DC.SUM ---
Providers Date of Admission: 01/13/25 Date of Discharge: 01/15/25 Primary Care Physician: Dr. Bay Miller MD Reason For Visit: COPD EXACERBATION Diagnosis Discharge Diagnosis (1) COPD with exacerbation: Status: Chronic Code(s): J44.1 - Chronic obstructive pulmonary disease with (acute) exacerbation Plan 1. Exacerbation of COPD-continue present treatment including p.o. Zithromax, IV Solu-Medrol, and aerosol treatments #2 hypoxia secondary to #1-patient's pulse ox will be monitored, oxygen will be weaned if possible #3 noncompliance with medical treatment-patient does not follow-up on a regular basis with a physician, she had been on several medications in the past including inhalers. Total clinical time spent by myself addressing patient's medical issues, reviewing all of her data, and collaborating with patient's care team: 35 minutes Medications at Discharge Home Medications albuterol sulfate 90 mcg/actuation aerosol inhaler (Ventolin HFA) 2 puff inhalation Q6H PRN shortness of breath or wheezing #6.7 grams 01/15/25 budesonide-formoterol HFA 160 mcg-4.5 mcg/actuation aerosol inhaler (Symbicort) 2 puff inhalation BID #10.2 grams 01/15/25 hydroxyzine pamoate 25 mg capsule (Vistaril) 75 mg (3 x 25 mg) PO TID PRN anxiety #60 caps 01/15/25 prednisone 20 mg tablet 20 mg PO BID #20 tabs 01/15/25 Hospital Course Operations None Procedures None Summary of Care Provided Minutes Spent on Discharge: 31 Hospital Course: This 69-year-old white female was seen in the emergency room at [facility] with complaints of shortness of breath x 1 week. Patient does not follow-up with a physician chronically and the last time she was seen by a primary care physician was approximately 3 years prior. Patient has a history of COPD and bought a home oxygen machine on the Internet but it only is adjustable up to 3 L. Patient is using an old inhaler. Patient's pulse ox on room air was 94%, she had a chest x-ray performed which showed no acute process, D-dimer was normal. Patient refused arterial blood gas even though it was explained that it might be helpful in her care. Patient was given several aerosol treatments and IV Solu-Medrol, she remained dyspneic in the emergency room but her pulse ox did not drop below 90% at rest although she was very tachypneic. Patient was admitted to PCU and placed on aerosol treatments and IV corticosteroids, she was put on oral Zithromax. Patient's respiratory status improved over the next few days and she did not require oxygen at the time of discharge from the hospital. On 01/15/2025, patient was seen and examined: On examination she appeared in good health and spirits, she does not appear to be in any distress. Vital signs as documented. Skin warm and dry and without overt rashes. Neck without JVD, thyroid appears normal, trachea is midline, neck is supple. Lungs clear, normal air movement was noted. Heart exam notable for regular rhythm, normal sounds and absence of murmurs, rubs or gallops. Abdomen unremarkable and without evidence of organomegaly, masses, or abdominal aortic enlargement, bowel sounds are present in all 4 quadrants, no abdominal tenderness was noted. Extremities nonedematous, no cyanosis was noted, no clubbing was noted. Neuro: Cranial nerves II through XII are grossly intact, no focal motor deficits were noted, sensation to light touch and pinprick is intact, motor exam 5/5 throughout. Psych: Patient is alert and oriented x3, she does not appear anxious or depressed, she does not appear agitated. Patient was discharged home in stable condition on 01/15/2025 Weight / BMI Weight Weight: 55.8 kg Body Mass Index (BMI) 23.2 ABG / Lab / Microbiology Data 01/13/25 10:28 01/13/25 10:28 D/C Instructions Weight Bearing Status: Full weight bearing DC O2, CPAP, BIPAP Needs Home O2 Discharge instructions: No Meaningful Use Info Meaningful Use Meaningful Use Diagnoses (Choose all that apply): None applicable Discharge Plan Admission Admit Date/Time: 01/13/25 14:12 Primary Reason for Your Visit: Exacerbation of COPD Attending Provider: Hai Nicolas Primary Care Provider: Bay Miller Discharge Orders/Prescriptions Prescriptions: New budesonide-formoterol [Symbicort] 160-4.5 mcg/actuation HFA aerosol inhaler 2 puff inhalation BID Qty: 10.2 0RF Rx Instructions: Rinse out mouth after use prednisone 20 mg tablet 20 mg PO BID Qty: 20 0RF albuterol sulfate [Ventolin HFA] 90 mcg/actuation HFA aerosol inhaler 2 puff inhalation Q6H PRN (Reason: shortness of breath or wheezing) Qty: 6.7 0RF hydroxyzine pamoate [Vistaril] 25 mg capsule 75 mg PO TID PRN (Reason: anxiety) Qty: 60 0RF Rx Instructions: 2 to 3 capsules 3 times a day as needed for anxiety Referrals / Follow Up: Bay Miller MD [Primary Care Provider] - Within 2 Weeks Disposition Disposition (needs filled in before D/C Order can be placed): Home, Self Care Charges/Coding Visit Charges Inpatient E&M: 98733 Disch Hosp >30min
--- NOTE | 2025-01-15 13:58 | CASEMGMT ---
Patient has order for discharge. RN CM in to discuss needs at discharge. Patient denies needs or help at discharge. RN CM encouraged patient to get established with PCP, patient voiced understanding. Patient had no further questions or concerns.
--- NOTE | 2025-01-15 14:01 | PHA.DC_ITS ---
Pharmacy [facility] Counseling Pharmacy Service has performed discharge medication reconciliation and counseling for this patient.\ 1. ALBUTEROL MDI 2 PUFFS Q6H PRN SOB/WHEEZING 2. SYMBICORT 2 PUFFS BID 3. HYDROXYZINE 75MG PO TID PRN ANXIETY 4. PREDNISONE 20MG PO BID X 10 DAYS The patient's discharge medication list was reviewed for discrepancies and discrepancies were resolved. The patient was counseled on the following discharge medications and changes in medications for homegoing were reviewed. The Reason for Use, instructions for use, and potential side effects were reviewed for all new medications. The patient's questions regarding all of their medications were answered. The patient was able to verbally demonstrate an understanding of their discharge medications. Medications at Discharge Home Medications albuterol sulfate 90 mcg/actuation aerosol inhaler (Ventolin HFA) 2 puff inhalation Q6H PRN shortness of breath or wheezing #6.7 grams 01/15/25 budesonide-formoterol HFA 160 mcg-4.5 mcg/actuation aerosol inhaler (Symbicort) 2 puff inhalation BID #10.2 grams 01/15/25 hydroxyzine pamoate 25 mg capsule (Vistaril) 75 mg (3 x 25 mg) PO TID PRN anxiety #60 caps 01/15/25 prednisone 20 mg tablet 20 mg PO BID #20 tabs 01/15/25
== END 2025-01-15 13:54 | disposition home or self-care (01) | DRG 192 ==
LOC: ED 13:14 → PCU 13:32
PROVIDERS: Admitting Provider Internal Medicine; Emergency Provider Surgery; PCP Internal Medicine; Visit Provider Internal Medicine
DX: J44.1 Chronic obstructive pulmonary disease with (acute) exacerbation (principal); F17.210 Nicotine dependence, cigarettes, uncomplicated; I10 Essential (primary) hypertension; R09.02 Hypoxemia; Z86.718 Personal history of other venous thrombosis and embolism; Z91.148 Patient's other noncompliance with medication regimen for other reason; Z91.199 Patient's noncompliance with other medical treatment and regimen due to unspecified reason; Z53.20 Procedure and treatment not carried out because of patient's decision for unspecified reasons
CPT/HCPCS: 36415; 71046; 80048; 82803; 83880; 84484; 85025; 85379; 93005; 94002; 94640; 97802; 99252; 99285; A4216; G0463

== ENCOUNTER → 2025-02-14 | Outpatient (CLI) | payer MEDICARE, SELFPAY ==
--- NOTE | 2025-02-14 15:37 | CT_ITS ---
PROCEDURE: CT low-dose lung screening 02/14/2025 REASON FOR EXAM: SMOKING HISTORY TECHNIQUE: Procedure Code: [id number] Modality: CT Procedure: LOW DOSE CT LUNG SCREENING Coronal and Sagittal reconstruction series were provided. One or more dose reduction techniques were used (e.g., Automated exposure control, adjustment of the mA and/or kV according to patient size, use of iterative reconstruction technique). REFERENCE LINK: [facility] Lung-RADS RADIATION DOSE SUMMARY: CTDlvol: 2 mGy DLP: 67.71 mGycm COMPARISON: None FINDINGS: PULMONARY NODULES: (Only nodules >3mm are reported) Pulmonary Nodules: No suspicious pulmonary nodule or ground-glass opacity Hardware:None Lymph Nodes:No lymphadenopathy. Heart and Vasculature:No cardiomegaly. Ectasia of the ascending aorta measuring 4 cm Coronary Artery Calcifications: Heavy coronary artery calcifications. Lungs and Airways: Thickened bronchi with subtle areas of mucous plugging in the lower lobes. No focal consolidation. Emphysema. Patent airway. Pleura:No effusion or pneumothorax. Upper Abdomen:Hiatal hernia. Bones:No destructive osseous lesion. Healing left-sided rib fractures. Normal thoracic inlet invisible thyroid. Normal soft tissues of the chest wall. CT/Low Dose CT Lung Screening IMPRESSION: No acute cardiopulmonary process. Emphysema in evidence of reactive airways. No suspicious pulmonary nodule or mass. Ectasia of the ascending aorta with heavy coronary arterial calcifications. Hiatal hernia. Coronary artery calcification (CAC) is is present Lung-RADS Category: 1 NEGATIVE. RECOMMEND 12-MONTH SCREENING LDCT. Other Significant Findings: No significant additional findings requiring follow -up. Recommendation: Routine screening in 1 year Reading Location: [facility]
== END | disposition home or self-care (01) ==
LOC: CT 15:36
PROVIDERS: PCP Internal Medicine; Referring Provider Physician Assistant; Visit Provider Physician Assistant
DX: F17.210 Nicotine dependence, cigarettes, uncomplicated (principal)
CPT/HCPCS: 71271

== ENCOUNTER → 2025-04-23 | Outpatient (CLI) | payer MEDICARE, SELFPAY | END | disposition home or self-care (01) | LOC: PSN 10:24 | PROVIDERS: PCP Internal Medicine; Referring Provider Internal Medicine Critical Care Medicine; Visit Provider Internal Medicine Critical Care Medicine | DX: J44.9 Chronic obstructive pulmonary disease, unspecified (principal); F17.211 Nicotine dependence, cigarettes, in remission | CPT/HCPCS: 94060; 94726; 94729 ==

== ENCOUNTER → 2025-04-25 | Outpatient (CLI) | payer MEDICARE, SELFPAY ==
--- NOTE | 2025-04-27 11:52 | STRESSREP ---
Stress Test Report Date: 04/25/2025 Procedure: Pharmacologic stress nuclear imaging study Indications: Chest pain Consent: Per the patient Procedure: The patient underwent pharmacologic (Regadenoson) evaluation with a peak heart rate of 107 beats per minute (71%predicted maximal heart rate) and a peak blood pressure of 146/84 mmHg. The baseline ECG demonstrated normal sinus rhythm. EKG during lexiscan infusion revealed no significant ischemic changes. EKG post infusion revealed no significant ischemic changes [There were no cardiac dysrhythmias pretest, during pharmacologic infusion, or recovery]. [There was no complaint of chest discomfort during pharmacologic infusion or recovery]. The examination was discontinued secondary to completion of protocol. Impression: 1. Lexiscan stress test test is negative for Lexiscan infusion induced EKG changes of ischemia. 2. Lexiscan stress test test is negative for Lexiscan infusion induced chest pain. 3. Results of the nuclear portion of the test is as below Myocardial perfusion imaging study: Technique: The patient was injected with 11.6 millicuries of technetium 99m Cardiolite and subsequently rest SPECT Cardiolite nuclear imaging was obtained in the horizontal long, vertical long, and short axis views. The patient underwent pharmacologic [Regadenoson 0.4mg] evaluation. Please see above for details. The patient was injected with 33.1 millicuries of technetium 99m Cardiolite and subsequently stress SPECT Cardiolite nuclear imaging was obtained in the horizontal long, vertical long, and short axis views. A gated Cardiolite study at peak stress was obtained. Interpretation: Rest and stress SPECT Cardiolite nuclear imaging status post realignment, normalization, and attenuation correction demonstrate no evidence of significant ischemia or infarction. There is evidence of possible diaphragmatic attenuation artifact. Gated images reveal no significant regional wall motion abnormalities. The reported LVEF is 62%. Impression: 1. There is no evidence of significant ischemia or infarction. 2. Estimated ejection fraction is 62%. This note was generated with [employer]ation software. It may contain incorrect words, spelling, and punctuation that were not noted in checking the note before signing.
== END | disposition home or self-care (01) ==
LOC: CVS 06:02
PROVIDERS: PCP Internal Medicine; Referring Provider Internal Medicine; Visit Provider Internal Medicine
DX: R07.89 Other chest pain (principal); R06.00 Dyspnea, unspecified; R79.89 Other specified abnormal findings of blood chemistry
CPT/HCPCS: 78452; 93017; A9500; A4216; J2785

== ENCOUNTER → 2025-04-30 | Outpatient (CLI) | payer MEDICARE, SELFPAY ==
[2025-04-30 13:23] VITALS: PULSE 100; PULSE 111; PULSE 115; PULSE 118; PULSE 119; PULSE 97; O2SAT 91; O2SAT 92; O2SAT 93; O2SAT 96
--- NOTE | 2025-04-30 13:26 | CPS ---
Patient walked the first 4 minutes of testing without any breaks. Stated that she could not walk anymore at the 4th minute, rested the last 2 minutes of testing. Patient was noticeably short of breath and rated it a little over moderate.
--- NOTE | 2025-05-02 11:36 | PCM.PSN.6M ---
PSN 6 Minute Walk Test 6 Minute Walk Test 6 Minute Walk Test: 6 Minute Walk Test PSN:6-Minute Walk Test Start: 04/30/25 13:23 Freq: Status: Active Protocol: [id number] Document 04/30/25 13:23 RUDOLPH (Rec: 04/30/25 13:28 RUDOLPH [id number]) 6 Minute Walk Test Date Performed 04/30/25 Time Performed 13:15 Height 5 ft 1 in Weight: 140 lb Weight in Pounds 140.[address]: Melquiades Garibay Assistive device None used: Pre-test Oxygen Delivery Room Air Method Pulse Ox (%) 93 Pulse Rate (60-100 97 beats/min) Dyspnea Diana Scale ( 0.5 0-10) Exertion Diana Scale 6 (6-20) 1st minute Oxygen Delivery Room Air Method Pulse Ox (%) 93 Pulse Rate (60-100 111 H beats/min) 2nd minute Oxygen Delivery Room Air Method Pulse Ox (%) 92 Pulse Rate (60-100 115 H beats/min) 3rd minute Oxygen Delivery Room Air Method Pulse Ox (%) 91 Pulse Rate (60-100 118 H beats/min) 4th minute Oxygen Delivery Room Air Method Pulse Ox (%) 92 Pulse Rate (60-100 119 H beats/min) Dyspnea Diana Scale ( 4 0-10) Exertion Diana Scale 14 (6-20) Post-test Oxygen Delivery Room Air Method Pulse Ox (%) 96 Pulse Rate (60-100 100 beats/min) Full Laps Walked 6 Partial Lap, Number 12 of Tiles Walked Total Distance 366 Walked (ft) 04/30/25 13:26 Cardiopulmonary Services by Annabelle Hernandez Patient walked the first 4 minutes of testing without any breaks. Stated that she could not walk anymore at the 4th minute, rested the last 2 minutes of testing. Patient was noticeably short of breath and rated it a little over moderate. Initialized on 04/30/25 13:26 - END OF NOTE Interpretation Interpretation: The patient ambulated 366 feet over the course of 4 minutes beginning on room air without assistive devices. Pretesting oxygen saturation was noted to be 93% on room air. With ambulation, the radha oxygen saturation was 91%. Although there was evidence of impaired walk distance, there was no significant exertional oxygen desaturation. Recommendations Recommendations: There is no indication for the use of supplemental oxygen at this time.
== END | disposition home or self-care (01) ==
LOC: PSN 13:06
PROVIDERS: PCP Internal Medicine; Referring Provider Internal Medicine Critical Care Medicine; Visit Provider Internal Medicine Critical Care Medicine
DX: J44.9 Chronic obstructive pulmonary disease, unspecified (principal); F17.211 Nicotine dependence, cigarettes, in remission
CPT/HCPCS: 94618

== ENCOUNTER 2025-05-21 10:57 | Inpatient (IN) | payer MEDICARE, SELFPAY ==
[2025-05-21] VITALS (12 sets, daily range): BP systolic 126–160; BP diastolic 67–96; PULSE 94–114; RESP 18–100; TEMP 36.3–36.9; O2SAT 3–100; BMI 27.1; BMI 25.2
--- NOTE | 2025-05-21 11:08 | EKG12_ITS ---
Test Reason : Blood Pressure : */* mmHG Vent. Rate : 102 BPM Atrial Rate : 102 BPM P-R Int : 136 ms QRS Dur : 76 ms QT Int : 330 ms P-R-T Axes : 78 78 71 degrees QTcB Int : 430 ms Sinus tachycardia Otherwise normal ECG Confirmed by NUHA DEGROOT, TIFFANY ([id number]), acquisition editor PATY AMADOR ([id number]) on 05/26/2025 6:21:06 AM Referred By: Confirmed By: TIFFANY BREEN MD
--- NOTE | 2025-05-21 11:09 | RAD_ITS ---
PROCEDURE: CHEST PA AND LATERAL 05/21/2025 REASON FOR EXAM: RESPIRATORY DISTRESS AND DECREASED BREATH SOUNDS B TECHNIQUE: Procedure Code: RADCXR Modality: DX Procedure: CHEST PA AND LATERAL COMPARISON: CT chest 02/14/2025 FINDINGS: Hardware: None Heart: The heart size is normal. Mediastinum: The mediastinal contour is unremarkable. Lungs: The lungs are clear. No pneumothorax or pleural effusion. Bones: The bones are unremarkable. RAD/Chest PA and Lateral IMPRESSION: NO ACUTE FINDINGS. Reading Location: [facility]
--- NOTE | 2025-05-21 11:11 | ED.VIS.DYS ---
HPI History of Present Illness Chief Complaint: Shortness of Breath Detail of Chief Complaint: Waxing and waning since January Informant: patient Onset/Context/Timing Onset: Today (To date worst and cannot walk across the room) Context: sudden Timing: Continuous Quality: Positive for Dyspnea on exertion, Orthopnea and Wheezing; Negative for PND Current Severity: Moderate Maximum Severity: Severe Worsened by: Exertion and Lying flat (Patient bed does recline. She states she is short of breath if she is supine.); Not Worsened By Coughing Relieved by: Nothing; Not Relieved By Rest or Albuterol Associated Symptoms cough and rhinorrhea; Negative for post nasal drip, ear pain, fever, sore throat, subjective, chills, sweats or clear sputum Chest Pain: Positive for None Narrative Narrative: Patient is a 69-year-old woman. She has history of COPD. She is on Trulicity and albuterol. She states that it is not helping. She was seen recently by Dr. Garibay/pulmonary. She had test done as an outpatient. She has not had a follow-up appointment. She reports problems breathing since January. To her knowledge she is not on steroids. She denies fever or chills. She does endorse rhinorrhea and congestion. She denies ear pain or drainage. She denies sore throat or postnasal drainage. She does have a cough with essentially nonproductive. She denies chest pain, pressure, tightness or heaviness. She denies pain with breathing. She does have a remote history of DVT. She denies leg pain, swelling or discoloration. She denies abdominal pain, nausea, vomiting or diarrhea. She denies dysuria, frequency, urgency or hematuria. She has not noted any swelling of her legs. When asked if she was able to sleep supine she responded I sleep on my side. She does endorse that her bed is adjustable and she has it elevated. When asked why it was due to comfort or shortness of breath she responded shortness of breath. This has been a longstanding issue. PE Risk Factors: Positive for Prior DVT or PE; Negative for Cancer, OCP + Smoking + > 35, Recent immobilization, Recent surgery or Recent travel Prior similar symptoms: Yes (COPD, quit smoking January 2025) Recent Illness/Hospitalization: Yes PFSH [facility] Medical History Elevated troponin Dyspnea COPD with exacerbation Tobacco abuse Generalized anxiety disorder with panic attacks Unintentional weight loss of 10% body weight within 6 months Dark stools Chronic diarrhea High cholesterol Hypertension Gastrointestinal problem COPD (chronic obstructive pulmonary disease) Hx of blood clots Home Medications ?Medication ?Instructions ?Recorded ?Last Taken ?Type albuterol sulfate 90 mcg/actuation 2 puff inhalation Q6H PRN 01/15/25 Unknown Rx aerosol inhaler (Ventolin HFA) shortness of breath or wheezing #6.7 grams amlodipine 2.5 mg tablet 2.5 mg PO QDAY #30 tabs 04/07/25 05/20/25 Rx blood pressure monitor #1 ea 04/07/25 Unknown Rx albuterol sulfate 90 mcg/actuation 2 puff inhalation Q4H PRN 04/08/25 Unknown Rx aerosol inhaler shortness of breath or wheezing #8.5 grams Allergy/AdvReac Type Severity Reaction Status Date / Time No Known Allergies Allergy Verified 05/21/25 10:59 Family History Sister Arthritis Mother Myocardial infarction Other Anxiety Heart disease High cholesterol Social History Smoking Status: Former smoker quit date: 01/13/25 ROS ROS ED Constitutional Constitutional ED: Denies chills, fever(s), sweats or weight loss Eyes Eyes: Denies blurry vision or change in vision ENT ENT ED: Reports rhinorrhea; Denies ear pain or sore throat Cardiovascular Cardiovascular: Reports orthopnea; Denies chest pain, palpitations, paroxysmal nocturnal dyspnea or racing heartbeat Respiratory/Chest Respiratory/Chest: Reports cough, dyspnea, dyspnea on exertion and orthopnea; Denies paroxysmal nocturnal dyspnea or sputum Gastrointestinal Gastrointestinal: Denies abdominal pain, diarrhea, melena, nausea or vomiting Genitourinary Genitourinary ED: Denies dysuria, hematuria or urinary frequency Musculoskeletal Musculoskeletal: Denies arthralgias, back pain or myalgias Psychiatric Psychiatric: Denies anxiety or depression Hematologic/Lymphatic Hematologic/Lymphatic: Denies easy bleeding or easy bruising Allergic/Immunologic Allergic/Immunologic ED: Reports mouth swelling; Denies tongue swelling EXAM Physical Exam Const Vital Signs: 05/21/25 10:58 05/21/25 11:31 05/21/25 11:56 Temperature 98.1 F Temperature Source Oral Pulse Rate 114 H 94 Respiratory Rate 30 H 22 H Respiratory Effort Respiratory Pattern Tachypnea Blood Pressure 160/79 H Blood Pressure Mean 106 Pulse Ox 94 81 Oxygen Delivery Method Room Air Room Air Oxygen Flow Rate (L/min) 05/21/25 11:58 05/21/25 11:59 05/21/25 12:00 Temperature 98.1 F Temperature Source Oral Pulse Rate 109 H Respiratory Rate 27 H Respiratory Effort Short of Breath Respiratory Pattern Tachypnea Blood Pressure 153/96 H Blood Pressure Mean 115 Pulse Ox 100 100 Oxygen Delivery Method Nasal Cannula Nasal Cannula Nasal Cannula Oxygen Flow Rate (L/min) 4 4 4 05/21/25 13:13 Temperature 98.4 F Temperature Source Oral Pulse Rate 100 Respiratory Rate 23 H Respiratory Effort Respiratory Pattern Blood Pressure 126/67 H Blood Pressure Mean 86 Pulse Ox 100 Oxygen Delivery Method Nasal Cannula Oxygen Flow Rate (L/min) 4 Positive well nourished and well developed Constitutional Narrative: Patient is in Rester distress. She is tachypneic. She is breathing with Pal[place] to lips. She is able to say 1 or 2 words before having to gasp for breath. General Appearance ED: well developed; Negative for NAD or pallor HEENT Reports dry mucous membranes HEENT Narrative: Head is atraumatic and normocephalic. Nares patent with no discharge. External ear exam normal. Posterior pharynx is normal. Mouth ED: Yes dry mucous membranes Mouth: dry mucous membranes Eyes PERRL and EOMs intact bilaterally General Eye ED: Negative for pale conjunctiva or scleral icterus Neck no lymphadenopathy, supple, no meningeal signs and no JVD Neck Narrative: Trachea is midline. There is no inspiratory expiratory stridor. Resp No clear to auscultation bilaterally Resp Narrative: There may be a slight expiratory wheeze. Patient has minimal air movement. Cardio regular rhythm, S1 normal heart sound, S2 normal heart sound and no murmurs Rate: tachycardic GI non-tender, non-distended and no masses GI Narrative: No palpable cell mass or abdominal bruit. Palpation: soft Back/Spine no CVA tenderness Extremity normal to inspection General Extremety ED: Yes edema General Extremity: edema Neuro oriented x3 and CN's II-XII intact bilaterally Sensorium / Orientation: alert Psych mental status grossly normal Skin no wounds and skin turgor normal General Skin Exam: Negative for jaundice or pallor Lesions: no lesions Rashes: no rashes MDM MDM MDM Narrative Medical decision making narrative: Patient obvious respiratory distress. Differential diagnosis would be exacerbate COPD, pneumothorax, pulmonary embolus, congestive heart failure, cardiac ischemia. History is consistent with COPD. Will obtain chest x-ray to rule out pneumonia and pneumothorax. If patient does not improve we will need to consider pulmonary embolus. When she was seen in January her D-dimer at that time was normal at 0.27. Her history and physical exam is not consistent with cardiac ischemia. If there is no obvious abnormality on the EKG will not obtain troponin levels. Did review records from January when she was seen for exacerbation COPD. She did have a blood gas at that time which indicates she is a chronic retainer. History & Record Review Additional record(s) reviewed:: Prior ED visit and Prior labs Lab Data Attestation: I reviewed the patient's lab results. Lab results narrative: CBC reveals elevated white count of 12.7 thousand with slight shift. H&H is elevated at 15.4 and 48.8. D-dimer is normal. Comprehensive metabolic panel reveals elevation of glucose of 122 with a normal CO2 anion gap. Labs: Laboratory Results - last 24 hr 05/21/25 11:20 WBC 12.7 H RBC 5.19 Hgb 15.4 H Hct 48.8 H MCV 94.0 MCH 29.7 MCHC 31.6 L RDW Std Deviation 40.4 RDW Coeff of Faisal 11.6 Plt Count 325 MPV 9.4 Immature Gran % (Auto) 0.500 Neut % (Auto) 71.2 H Lymph % (Auto) 15.4 L [place] % (Auto) 11.5 H Eos % (Auto) 0.8 Baso % (Auto) 0.6 Absolute Neuts (auto) 9.0 H Absolute Lymphs (auto) 1.95 Nucleated RBC % 0 D-Dimer Quant (PE/DVT) 0.42 Sodium 141 Potassium 3.9 Chloride 102 Carbon Dioxide 27.9 Anion Gap 11 BUN 11 Creatinine 0.66 L Estim Creat Clear Calc 56.53 Est GFR (MDRD) Non-Af 94 BUN/Creatinine Ratio 15.9 Glucose 122 H Lactic Acid 1.3 Calcium 9.7 Total Bilirubin 0.49 AST 21 ALT 10 Alkaline Phosphatase 95 Total Protein 7.4 Albumin 4.3 Globulin 3.1 Albumin/Globulin Ratio 1.4 ABG Data Attestation: I personally reviewed and interpreted this ABG as follows: Interpretation: ABG indicates patient is hypoxic with increased AA gradient and is a chronic retainer. Since patient is hypoxic and now on oxygen she will require admission. ABG results: ABG 05/21/25 11:45 Specimen Type ART Sample Site L Radial pH 7.37 Bicarbonate Actual 30.9 H Total CO2 33 Base Excess 6 H O2 Saturation 82 L O2 % 21.0 ABG pCO2 53.0 H ABG pO2 49 L Adrián Test Positive O2 Delivery Device Room Air Vent Mode Not entered Radiography Chest X-Ray - ED: 2 View, Read by ED Physician, Normal, Heart, Mediastinum and - (There are chronic lung parenchymal changes. There is no infiltrate, effusion or evidence of cephalization. Mediastinum is unremarkable.) Diagnostic Testing: Clinical Impression(s) from Imaging Studies Chest X-Ray 05/21/25 11:09 IMPRESSION: NO ACUTE FINDINGS. Reading Location: [facility] Rhythm Strip Rhythm Strip: Sinus Tach Rate: 112 Ectopy: None EKG Initial EKG: Attestation: I personally reviewed and interpreted this EKG as follows: Interpretation: Sinus Tachycardia (Rate is 102. Other than tachycardia the EKG is normal. ND interval is 136 ms. Cures duration 76 ms. QT duration Nitin 30 ms. 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 Reason(s) pneumonia less likely: Positive for no infiltrate on CXR and no noted fever; Negative for no elevation in WBC count or symptoms not consistent with acute infection, aortic dissection Reason(s) Aortic dissection less likely:: Positive for normal vascular exam, normal neurological exam, no significant risk factors for dissection, no widened mediastinum on CXR, pain not sudden onset, no ripping/tearing pain, no pain to back, blood pressure appropriate in ED and other (D-dimer was normal) and CHF Reason(s) CHF less likely: Positive for no significant peripheral edema and no evidence of fluid overload on CXR; Negative for no orthopnea; Negative for COPD Management Discussion w/another healthcare provider: Hospitalist (Case discussed with Dr. Hai Pace. Admission to PCU) Treatment and Re-Evaluation Comments:: Nurse informed me the patient desaturated to 81%. 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
[2025-05-21 11:26] LABS: Hematocrit 48.8 % (37-47); Hemoglobin 15.4 g/dL (12.0-15.0); Immature Granulocytes Count 0.060 X10^3/uL (0.0-0.0); Mean Corp Hgb Conc 31.6 g/dL (32-36); Mean Corpuscular Volume 94.0 fL (81-99); Mean Platelet Vol. 9.4 fl (6.2-12.0); NRBC Flagged by Analyzer 0 % (0-5); Platelet Count 325 K/mm3 (150-450); RBC Distribution Width CV 11.6 % (11.6-14.6); RBC Distribution Width SD 40.4 fl (35.1-43.9); Red Blood Count 5.19 M/mm3 (4.2-5.4); White Blood Count 12.7 K/mm3 (4.4-11.0)
[2025-05-21] MEDS: Albuterol 2.5 MG/3 ML VIAL.NEB. INHALATION ×3 (11:28)
[2025-05-21 11:42] LABS: D-Dimer Quantitative (DVT/PE) 0.42 FEU/ug/m (0.27-0.49)
[2025-05-21 11:50] LABS: Allen Test Positive; Base Excess 6 mmol/L (-2 to +2); FI02 21.0; PO2 49 mmHG (75-100); SITE L Radial; SO2 82 % (94-98)
[2025-05-21 11:57] LABS: AST(SGOT) 21 U/L (<=31); Alanine Aminotransfer ALT/SGPT 10 U/L (<=34); Albumin, Serum 4.3 g/dL (3.4-4.8); Alkaline Phosphatase 95 U/L (35-104); Anion Gap 11 (5-15); BUN 11 mg/dL (4-19); BUN/Creat Ratio 15.9 RATIO (10-20); Calcium,Total 9.7 mg/dL (7.6-11.0); Carbon Dioxide 27.9 mmol/L (21.0-32.0); Chloride 102 mmol/L (98-108); Estimated Creatinine Clearance 56.53 ml/min (50-250); Globulin 3.1 g/dL (2.2-4.2); Glucose 122 mg/dL (70-99); Potassium 3.9 mmol/L (3.3-5.1)
[2025-05-21] MEDS: hydrOXYzine PAM 25 MG Capsule PO ×3 (16:33→22:19)
--- NOTE | 2025-05-21 18:58 | HP.PCM.HOS_ITS ---
HPI - General General Date of Admission: 05/21/25 Date of Service: 05/21/25 Chief Complaint: Shortness of breath HPI Narrative SUSHANT MEDEIROS, is a 69 F who presents to the emergency room at [facility] today with chief complaint of shortness of breath. Patient does have a history of chronic obstructive pulmonary disease but does not wear oxygen at home. Patient is on Trelegy and rescue albuterol chronically. Patient had PFTs performed in April which showed a very severe large airways obstructive ventilatory defect-not responsive to bronchodilators. Workup in the emergency room included a CBC which revealed an elevated white blood cell count of 12.7, hemoglobin 15.4, chemistry panel was unremarkable, and an arterial blood gas on room air showed a pH of 7.37, pCO2 53, pO2 49. Patient's D-dimer was not elevated, patient's chest x-ray showed no acute pulmonary disease. Patient will be admitted to PCU, supplemental oxygen will be employed, pulse ox will be monitored, patient will be placed on IV corticosteroids and aerosol treatments. Echocardiogram will be ordered to rule out pulmonary hypertension. [facility] Medical History Elevated troponin Dyspnea COPD with exacerbation Tobacco abuse Generalized anxiety disorder with panic attacks Unintentional weight loss of 10% body weight within 6 months Dark stools Chronic diarrhea High cholesterol Hypertension Gastrointestinal problem COPD (chronic obstructive pulmonary disease) Hx of blood clots Home Medications ?Medication ?Instructions ?Recorded ?Last Taken ?Type albuterol sulfate 90 mcg/actuation 2 puff inhalation Q 6H PRN 01/15/25 Unknown Rx aerosol inhaler (Ventolin HFA) shortness of breath or wheezing #6.7 grams amlodipine 2.5 mg tablet 2.5 mg PO QDAY #30 tabs 03/1305/20/25 Rx blood pressure monitor #1 ea 04/07/25 Unknown Rx albuterol sulfate 90 mcg/actuation 2 puff inhalation Q 4H PRN 04/08/25 Unknown Rx aerosol inhaler shortness of breath or wheez ing #8.5 grams azithromycin 250 mg tablet 500 mg (2 x 250 mg) PO Q24 #2 tabs 05/23/25 Unknown Rx hydroxyzine pamoate 25 mg capsule 25 mg PO Q4H PRN anx iety #40 caps 05/23/25 Unknown Rx prednisone 20 mg tablet 40 mg (2 x 20 mg) PO DAILY # 15 tabs 05/23/25 Unknown Rx Allergy/AdvReac Type Severity Reaction Status Date / Time No Known Allergies Allergy Verified 05/21/25 10:59 Family History Sister Arthritis Mother Myocardial infarction Other Anxiety Heart disease High cholesterol Social History Smoking Status: Former smoker quit date: 01/13/25 ROS ROS Narrative Review of systems was not obtained due to altered mental status and lethargy Review of Systems ROS Unobtainable: due to mental status Vital Signs Vital Signs Vital Signs: 05/21/25 10:58 05/21/25 11:31 05/21/25 11:56 Temperature 98.1 F Temperature Source Oral Pulse Rate 114 H 94 Respiratory Rate 30 H 22 H Respiratory Effort Respiratory Depth Respiratory Pattern Tachypnea Blood Pressure 160/79 H Blood Pressure Mean 106 Pulse Ox 94 81 Oxygen Delivery Method Room Air Room Air Oxygen Flow Rate (L/min) 05/21/25 11:58 05/21/25 11:59 05/21/25 12:00 Temperature 98.1 F Temperature Source Oral Pulse Rate 109 H Respiratory Rate 27 H Respiratory Effort Short of Breath Respiratory Depth Respiratory Pattern Tachypnea Blood Pressure 153/96 H Blood Pressure Mean 115 Pulse Ox 100 100 Oxygen Delivery Method Nasal Cannula Nasal Cannula Nasal Cannula Oxygen Flow Rate (L/min) 4 4 4 05/21/25 13:13 05/21/25 14:08 05/21/25 14:28 Temperature 98.4 F 98.4 F 97.9 F Temperature Source Oral Temporal Pulse Rate 100 100 101 H Respiratory Rate 23 H 23 H 100 H Respiratory Effort Respiratory Depth Respiratory Pattern Blood Pressure 126/67 H 126/67 H 154/86 H Blood Pressure Mean 86 86 108 Pulse Ox 100 100 3 Oxygen Delivery Method Nasal Cannula Nasal Cannula Oxygen Flow Rate (L/min) 4 05/21/25 14:38 05/21/25 14:48 Temperature Temperature Source Pulse Rate 103 H Respiratory Rate 18 Respiratory Effort Short of Breath Labored Respiratory Depth Shallow Respiratory Pattern Normal Tachypnea Blood Pressure Blood Pressure Mean Pulse Ox Oxygen Delivery Method Nasal Cannula Oxygen Flow Rate (L/min) 3 Weight Weight: 64.6 kg Body Mass Index (BMI) 25.2 Physical Exam Const no apparent distress Constitutional Narrative: Patient is lethargic at this time General Appearance: well kempt and well developed HEENT normocephalic, head/scalp atraumatic, hearing grossly normal bilaterally and moist oral mucous membranes Eyes PERRL, EOMs intact bilaterally and conjunctivae normal Neck supple, no JVD, thyroid normal and no carotid bruits General: trachea midline Resp normal respiratory effort, no retractions and no use of accessory muscles Resp Narrative: Breath sounds are diminished bilaterally Auscultation: Negative for rales, rhonchi or wheezes Cardio regular rate, regular rhythm, S1 normal heart sound, S2 normal heart sound, no murmurs, no rub and no gallops GI normal to inspection, nondistended, normoactive bowel sounds, soft to palpation, non-tender and non-distended Extremity no clubbing, cyanosis or edema Skin no rashes or lesions noted General Skin Exam: no breakdown Neuro CN's II-XII intact bilaterally and moves all extremities Neuro Narrative: Patient is lethargic Psych Psych Narrative: Patient is lethargic Results Lab / Micro Data 05/21/25 11:20 05/21/25 11:20 Labs: Laboratory Results - last 24 hr 05/21/25 11:20: WBC 12.7 H, RBC 5.19, Hgb 15.4 H, Hct 48.8 H, MCV 94.0, MCH 29.7, MCHC 31.6 L, RDW Std Deviation 40.4, RDW Coeff of Faisal 11.6, Plt Count 325, MPV 9.4, Immature Gran % (Auto) 0.500, Neut % (Auto) 71.2 H, Lymph % (Auto) 15.4 L, [place] % (Auto) 11.5 H, Eos % (Auto) 0.8, Baso % (Auto) 0.6, Absolute Neuts (auto) 9.0 H, Absolute Lymphs (auto) 1.95, Nucleated RBC % 0, D-Dimer Quant (PE/DVT) 0.42, Sodium 141, Potassium 3.9, Chloride 102, Carbon Dioxide 27.9, Anion Gap 11, BUN 11, Creatinine 0.66 L, Estim Creat Clear Calc 56.53, Est GFR (MDRD) Non-Af 94, BUN/Creatinine Ratio 15.9, Glucose 122 H, Lactic Acid 1.3, Calcium 9.7, Total Bilirubin 0.49, AST 21, ALT 10, Alkaline Phosphatase 95, Total Protein 7.4, Albumin 4.3, Globulin 3.1, Albumin/Globulin Ratio 1.4 Micro: Microbiology 05/21/25 14:30 Mucosa - Nasopharyngeal Respiratory Panel (PCR) - Final ABG Data ABG results: ABG 05/21/25 11:45 Specimen Type ART Sample Site L Radial pH 7.37 Bicarbonate Actual 30.9 H Total CO2 33 Base Excess 6 H O2 Saturation 82 L O2 % 21.0 ABG pCO2 53.0 H ABG pO2 49 L Adrián Test Positive O2 Delivery Device Room Air Vent Mode Not entered Rhythm Strip Rhythm Strip: Sinus Tach Rate: 112 Ectopy: None Imaging Radiology Impression Chest X-Ray 05/21/25 11:09 IMPRESSION: NO ACUTE FINDINGS. Reading Location: [facility] Assessment & Plan Assessment/Plan (1) Acute on chronic respiratory failure with hypoxia and hypercapnia: PLAN: Plan 1. Acute and On chronic combined respiratory failure-patient will be admitted to PCU, she is currently on BiPAP #2 acute exacerbation of COPD-patient will be given aerosol treatments and IV corticosteroids, I decided to also place her on oral Zithromax. #3 lethargy secondary to acute on chronic combined respiratory failure-patient will be monitored #4 essential hypertension-patient will remain on her home blood pressure medication Total clinical time spent by myself addressing patient's medical issues, reviewing all her data, and collaborating with patient's care team: 75 minutes Charges/Coding Visit Charges Inpatient E&M: 59492 Init Hosp L3
--- NOTE | 2025-05-21 19:06 | ECHOD_ITS ---
Reason For Study Reason For Study: DYSPNEA/SOB Procedure This was a 2D Doppler, Color Flow transthoracic echocardiogram. The study was technically difficult. Low parasternal window. Exam performed portable in patient room. Left Ventricle Normal LV size. The estimated ejection fraction is 70 %. Diastolic function is indeterminate. No regional wall motion abnormalities noted. Right Ventricle Normal RV size. Normal systolic function. Atria The left and right atria are normal. No doppler evidence for ASD. Mitral Valve There is no mitral valve stenosis. No mitral valve insufficiency. Tricuspid Valve There is no tricuspid stenosis. Trivial tricuspid valve insufficiency. Pulmonary artery systolic pressure is 40 mmHg. Aortic Valve Trisinus/trileaflet aortic valve. There is no aortic stenosis. Trivial aortic valve insufficiency. Pulmonic Valve There is no pulmonic valvular stenosis. No pulmonic valve insufficiency. Great Vessels Normal sized aortic root. Pericardium/Pleural No pericardial effusion. MMode/2D Measurements & Calculations LVIDd: 4.3 cm IVSd: 0.53 cm LAV(MOD- bp): 24.1 ml LVIDs: 2.6 cm LVPWd: 0.68 cm LAV(MOD- bp) Indexed: 14.4 ml/m2 RVDd: 3.0 cm FS: 39.2 % LAV(MOD- sp2): 21.3 ml LAV(MOD- sp4): 27.3 ml LVAd ap4: 21.9 cm2 LVAd ap2: 19.2 cm2 EDV(MOD- bp): 54.3 ml LVLd ap4: 7.0 cm LVLd ap2: 6.5 cm ESV(MOD- bp): 14.0 ml EDV(MOD-sp4): 55.6 ml EDV(MOD-sp2): 47.4 ml EF(MOD- bp): 74.2 % EDV(sp4-el): 58.1 ml EDV(sp2-el): 48.2 ml LVAs ap4: 9.1 cm2 LVAs ap2: 8.4 cm2 LVLs ap4: 4.8 cm LVLs ap2: 4.6 cm ESV(MOD-sp4): 15.1 ml ESV(MOD-sp2): 12.7 ml ESV(sp4-el): 14.7 ml ESV(sp2-el): 12.8 ml EF(MOD-sp4): 72.8 % EF(MOD-sp2): 73.1 % EF(sp4-el): 74.7 % SV(MOD-sp4): 40.5 ml SV(MOD-sp2): 34.7 ml SV(sp4- el): 43.4 ml SI(MOD-sp4): 24.2 ml/m2 SI(MOD-sp2): 20.7 ml/m2 LA dimension(2D): 2.8 cm LA A4 area: 12.4 cm2 RA A4 area: 9.6 cm2 TAPSE: 2.0 cm Time Measurements MV dec time: 0.25 sec Doppler Measurements & Calculations MV E max ghassan: 85.6 cm/sec Lat Peak E' Ghassan: 6.8 cm/sec Med Peak E' Ghassan: 7.1 cm/sec MV A max ghassan: 113.3 cm/sec E/E' lat: 12.6 E/E' med: 12.1 MV E/A: 0.76 MV dec slope: 336.7 cm/sec2 Ao V2 max: 193.3 cm/sec AI max ghassan: 437.7 cm/sec Ao max P.9 mmHg AI max P.6 mmHg Ao V2 mean: 126.9 cm/sec AI dec slope: 182.5 cm/sec2 Ao mean P.6 mmHg AI P1/2t: 702.4 msec Ao V2 VTI: 34.0 cm AV (velocity ratio): 0.84 LV V1 max: 161.0 cm/sec PA V2 max: 111.8 cm/sec TR max ghassan: 290.6 cm/sec LV V1 max P.4 mmHg TR max P.8 mmHg LV V1 mean P.1 mmHg LV V1 mean: 104.2 cm/sec LV V1 VTI: 28.6 cm ECHO/Echo Complete Interpretation Summary The estimated ejection fraction is 70 %. Diastolic function is indeterminate. Trivial aortic valve insufficiency. Ordering Physician: Hai Nicolas Referring Physician: Bay Miller Performed By: Jessika Rogel RDCS
[2025-05-21] MEDS: Heparin Injection (Vial) 5,000 UNIT/ML VIAL 5000 UNIT SC (20:38)
[2025-05-22] VITALS (9 sets, daily range): BP systolic 137–155; BP diastolic 70–87; PULSE 92–108; RESP 18–24; TEMP 35.7–36.3; O2SAT 96–99
[2025-05-22] MEDS: hydrOXYzine PAM 25 MG Capsule PO ×4 (04:20→21:28)
[2025-05-22] MEDS: Albuterol 2.5 MG/3 ML VIAL.NEB. INHALATION (04:40)
[2025-05-22] MEDS: Heparin Injection (Vial) 5,000 UNIT/ML VIAL 5000 UNIT SC ×2 (10:00→21:28)
--- NOTE | 2025-05-22 13:30 | CASEMGMT ---
HERNAN ELIZABETH Face to Face with patient for initial transition planning/care coordination assessment. RN CM introduced self and role at [facility]. Patient lying in bed, alert and oriented. Patient willing to participate in assessment and is able to answer all questions appropriately. Care providers, pharmacy, and demographics verified. Strata: 2 PCP: Angela Specialists: Dewayne Garibay, bolt header Preferred Pharmacy: [facility] Insurance: [employer] [facility] Prescription Benefit: yes Living Will/HPOA: none LNOK: Sister, grandson, boyfriend Living Arrangements: Patient lives with boyfriend in a 2 story home, patient states she has been staying on first floor, 2 steps to enter the home. Patient states she is independent at home. Transportation: boyfriend DME/HHC: Patient has raised toilet, walker, pulse ox at home. No previous HHC or SNF. Will monitor for home oxygen at discharge, prefers [employer]. Patient wishes to discharge home, denies need for home health at this time. Patient states she has no further needs or concerns at this time. CM to follow for discharge planning needs that may arise. Disposition Plan: Patient to discharge home with family support and follow-up plans in place. Will monitor for home oxygen. Funmilayo DIAZ, RN, CM
--- NOTE | 2025-05-22 19:16 | PCM.PN.HOSP ---
Reason for Visit Chief Complaint: Shortness of breath Subjective Subjective Patient was seen and examined today, she appears comfortable, she is down 3 L of nasal cannula oxygen. Objective Data Objective Data Vital Signs: Vital Signs Temp Pulse Resp BP Pulse Ox O2 Del Method O2 Flow Rate 97.3 F L 98 20 H 138/71 H 98 Nasal Cannula 3 05/22/25 14:14 05/22/25 14:14 05/22/25 14:14 05/22/25 14:14 05/22/25 14:14 05/22/25 14:14 05/22/25 14:14 Oxygen Flow Rate (L/min) 3 Oxygen Delivery Method Nasal Cannula Weight: 64.6 kg Body Mass Index (BMI) 25.2 Intake & Output: Intake and Output for Last 24 Hours 05/20/25 05/21/25 05/22/25 23:59 23:59 23:59 Intake Total 300 / 650 1150 / 1150 Balance 300 / 650 1150 / 1150 Lab / Micro Data 05/21/25 11:20 05/21/25 11:20 Micro: Microbiology 05/21/25 14:30 Mucosa - Nasopharyngeal Respiratory Panel (PCR) - Final Radiography Diagnostic Testing: Radiology Impression Echocardiogram 05/21/25 19:06 Interpretation Summary The estimated ejection fraction is 70 %. Diastolic function is indeterminate. Trivial aortic valve insufficiency. Ordering Physician: Hai Nicolas Referring Physician: Bay Miller Performed By: Jessika Rogel RDCS Rhythm Strip Rhythm Strip: Sinus Tach Rate: 112 Ectopy: None Physical Exam Const alert, oriented x3 and no apparent distress General Appearance: cooperative, well kempt and well developed Orientation / Consciousness: awake, oriented to person, oriented to place and oriented to time HEENT normocephalic, head/scalp atraumatic and moist oral mucous membranes Eyes PERRL, EOMs intact bilaterally and conjunctivae normal Neck supple, no JVD, thyroid normal and no carotid bruits General: trachea midline Resp normal respiratory effort, no retractions and no use of accessory muscles Resp Narrative: Decreased breath sounds bilaterally Auscultation: Negative for rales, rhonchi or wheezes Cardio regular rate, regular rhythm, S1 normal heart sound, S2 normal heart sound, no murmurs, no rub and no gallops GI normal to inspection, nondistended, normoactive bowel sounds, soft to palpation, non-tender and non-distended Extremity no clubbing, cyanosis or edema Skin no rashes or lesions noted General Skin Exam: no breakdown Neuro oriented x3, CN's II-XII intact bilaterally, moves all extremities, no focal motor deficits and no sensory deficits noted Sensorium / Orientation: awake and alert Speech: speech normal Psych affect normal Assessment & Plan Assessment/Plan (1) Acute on chronic respiratory failure with hypoxia and hypercapnia: PLAN: Plan 1. Acute on chronic combined respiratory failure-patient's pulse ox will be monitored and her oxygen will be adjusted as needed #2 acute exacerbation of chronic obstructive pulmonary disease-patient will remain on IV corticosteroids and aerosol treatments''' #3 essential hypertension-patient will remain on her present medications Total clinical time spent by myself addressing the patient's medical issues, reviewing all of her data, and collaborating with patient's care team: 35 minutes Charges/Coding Visit Charges Inpatient E&M: 29840 Subs Hosp L2
[2025-05-23] VITALS (8 sets, daily range): BP systolic 143–154; BP diastolic 76–91; PULSE 80–106; RESP 18–22; TEMP 35.8–36.8; O2SAT 86–99
[2025-05-23] MEDS: hydrOXYzine PAM 25 MG Capsule PO ×3 (01:45→10:46)
[2025-05-23] MEDS: Polyethylene Glycol 3350 17 GM PACKET PO (09:03)
[2025-05-23] MEDS: Heparin Injection (Vial) 5,000 UNIT/ML VIAL 5000 UNIT SC (09:04)
--- NOTE | 2025-05-23 14:59 | DCINST_ITS ---
Discharge Instructions DC O2, CPAP, BIPAP needs Home O2 Discharge instructions: Yes Type of respiratory needs?: Oxygen Oxygen frequency: With Ambulation Oxygen liters per minute during Ambulation: 2 L and With Sleeping Oxygen liters per minute when sleepin L Dressing / Incision Discharge Activity: Return to Normal Activity Weight Bearing Status: Full weight bearing Follow Up Care Test Results: Test results from this visit will be discussed in further detail at your follow- up appointment, if applicable. Discharge Plan Admission Admit Date/Time: 05/21/25 13:18 Primary Reason for Your Visit: Exacerbation of COPD, acute hypoxic respiratory failure Attending Provider: Hai Nicolas Primary Care Provider: Bay Miller Instructions Additional Instructions / Restrictions: Take your azithromycin tomorrow morning Start your prednisone tomorrow morning Stay on your Trelegy inhaler Discharge Orders/Prescriptions Prescriptions: New azithromycin 250 mg Tablet 500 mg PO Q24 Qty: 2 0RF hydroxyzine pamoate 25 mg Capsule 25 mg PO Q4H PRN (Reason: anxiety) Qty: 40 0RF prednisone 20 mg tablet 40 mg PO DAILY Qty: 15 0RF Rx Instructions: 1 tablet twice a day for 5 days, then 1 tablet/day for 5 days then stop Continued amlodipine 2.5 mg tablet 2.5 mg PO QDAY Qty: 30 3RF (DME) blood pressure monitor Kit See Rx Instructions .MEDSUPPLY Qty: 1 0RF Rx Instructions: Check blood pressure daily for hypertension I10 albuterol sulfate 90 mcg/actuation HFA aerosol inhaler 2 puff inhalation Q4H PRN (Reason: shortness of breath or wheezing) Qty: 8.5 6RF Rx Instructions: administer with spacer albuterol sulfate [Ventolin HFA] 90 mcg/actuation HFA aerosol inhaler 2 puff inhalation Q6H PRN (Reason: shortness of breath or wheezing) Qty: 6.7 0RF Referrals / Follow Up: Melquiades Garibay DO [Med Staff - Active Staff, Pulmonary Medicine] - See Referral Note Referral Note: At next scheduled appointment time Bay Miller MD [Primary Care Provider, Internal Medicine] - Within 2 Weeks Disposition Disposition (needs filled in before D/C Order can be placed): Home, Self Care
--- NOTE | 2025-05-23 15:07 | PCM.DC.SUM ---
Providers Date of Admission: 05/21/25 Date of Discharge: 05/23/25 Primary Care Physician: Dr. Bay Miller MD Reason For Visit: ACUTE HYPOXIC RESPIRATORY FAILURE Diagnosis Discharge Diagnosis (1) Respiratory distress: Status: Acute Code(s): R06.03 - Acute respiratory distress Plan 1. Acute on chronic combined respiratory failure-patient's pulse ox will be monitored and her oxygen will be adjusted as needed #2 acute exacerbation of chronic obstructive pulmonary disease-patient will remain on IV corticosteroids and aerosol treatments''' #3 essential hypertension-patient will remain on her present medications Medications at Discharge Home Medications albuterol sulfate 90 mcg/actuation aerosol inhaler (Ventolin HFA) 2 puff inhalation Q6H PRN shortness of breath or wheezing #6.7 grams 01/15/25 amlodipine 2.5 mg tablet 2.5 mg PO QDAY #30 tabs 04/07/25 blood pressure monitor #1 ea 04/07/25 albuterol sulfate 90 mcg/actuation aerosol inhaler 2 puff inhalation Q4H PRN shortness of breath or wheezing #8.5 grams 04/08/25 azithromycin 250 mg tablet 500 mg (2 x 250 mg) PO Q24 #2 tabs 05/23/25 hydroxyzine pamoate 25 mg capsule 25 mg PO Q4H PRN anxiety #40 caps 05/23/25 prednisone 20 mg tablet 40 mg (2 x 20 mg) PO DAILY #15 tabs 05/23/25 Hospital Course Operations None Procedures None Summary of Care Provided Minutes Spent on Discharge: 30 Hospital Course: 69-year-old white female was seen in the emergency room at [facility] with complaints of shortness of breath, she does have a history of chronic obstructive pulmonary disease but does not wear oxygen at home. Patient follows with Dr. Garibay the performance reporter in [place]. Workup in the emergency room included a CBC which showed a white blood cell count elevation of 12.7, chemistry panel was unremarkable and arterial blood gas on room air showed a pH of 7.37, pCO2 53 and pO2 of 49. Chest x-ray showed no acute pulmonary disease, patient was admitted to PCU and pulse ox was monitored, she is placed on IV corticosteroids and aerosol treatments, patient improved while in the hospital, respiratory panel was unremarkable. On 05/23/2025, patient was seen and examined: On examination she appeared in good health and spirits, she does not appear to be in any distress. Vital signs as documented. Skin warm and dry and without overt rashes. Neck without JVD, thyroid appears normal, trachea is midline, neck is supple. Lungs clear, normal air movement was noted. Heart exam notable for regular rhythm, normal sounds and absence of murmurs, rubs or gallops. Abdomen unremarkable and without evidence of organomegaly, masses, or abdominal aortic enlargement, bowel sounds are present in all 4 quadrants, no abdominal tenderness was noted. Extremities nonedematous, no cyanosis was noted, no clubbing was noted. Neuro: Cranial nerves II through XII are grossly intact, no focal motor deficits were noted, sensation to light touch and pinprick is intact, motor exam 5/5 throughout. Psych: Patient is alert and oriented x3, she does not appear anxious or depressed, she does not appear agitated. Patient was discharged in stable condition on 05/23/2025 Weight / BMI Weight Weight: 64.6 kg Body Mass Index (BMI) 25.2 ABG / Lab / Microbiology Data 05/21/25 11:20 05/21/25 11:20 Microbiology: Microbiology 05/21/25 14:30 Mucosa - Nasopharyngeal Respiratory Panel (PCR) - Final Radiography Diagnostic Testing: Radiology Impression Echocardiogram 05/21/25 19:06 Interpretation Summary The estimated ejection fraction is 70 %. Diastolic function is indeterminate. Trivial aortic valve insufficiency. Ordering Physician: Hai Nicolas Referring Physician: Bay Miller Performed By: Jessika Rogel RDCS D/C Instructions Weight Bearing Status: Full weight bearing DC O2, CPAP, BIPAP Needs Home O2 Discharge instructions: Yes Type of respiratory needs?: Oxygen Oxygen frequency: With Ambulation Oxygen liters per minute during Ambulation: 2 L and With Sleeping Oxygen liters per minute when sleepin L DC home with Oxygen: Yes Home O2 MD Review: I have reviewed the oxygen testing, and the patient qualifies for home oxygen equipment and portability. The patient is mobile in the home and the community. Meaningful Use Info Meaningful Use Meaningful Use Diagnoses (Choose all that apply): None applicable Discharge Plan Admission Admit Date/Time: 05/21/25 13:18 Primary Reason for Your Visit: Exacerbation of COPD, acute hypoxic respiratory failure Attending Provider: Hai Nicolas Primary Care Provider: Bay Miller Instructions Additional Instructions / Restrictions: Take your azithromycin tomorrow morning Start your prednisone tomorrow morning Stay on your Trelegy inhaler Discharge Orders/Prescriptions Prescriptions: New azithromycin 250 mg Tablet 500 mg PO Q24 Qty: 2 0RF hydroxyzine pamoate 25 mg Capsule 25 mg PO Q4H PRN (Reason: anxiety) Qty: 40 0RF prednisone 20 mg tablet 40 mg PO DAILY Qty: 15 0RF Rx Instructions: 1 tablet twice a day for 5 days, then 1 tablet/day for 5 days then stop Continued amlodipine 2.5 mg tablet 2.5 mg PO QDAY Qty: 30 3RF (DME) blood pressure monitor Kit See Rx Instructions .MEDSUPPLY Qty: 1 0RF Rx Instructions: Check blood pressure daily for hypertension I10 albuterol sulfate 90 mcg/actuation HFA aerosol inhaler 2 puff inhalation Q4H PRN (Reason: shortness of breath or wheezing) Qty: 8.5 6RF Rx Instructions: administer with spacer albuterol sulfate [Ventolin HFA] 90 mcg/actuation HFA aerosol inhaler 2 puff inhalation Q6H PRN (Reason: shortness of breath or wheezing) Qty: 6.7 0RF Referrals / Follow Up: Melquiades Garibay DO [Med Staff - Active Staff, Pulmonary Medicine] - See Referral Note Referral Note: At next scheduled appointment time Bay Miller MD [Primary Care Provider, Internal Medicine] - Within 2 Weeks Disposition Disposition (needs filled in before D/C Order can be placed): Home, Self Care Charges/Coding Visit Charges Inpatient E&M: 61508 Disch Hosp
--- NOTE | 2025-05-23 15:07 | PCM.HOSP.N ---
Hospitalist Note Oxygen testing reviewed, patient is ambulatory in the home and community and requires home oxygen with portability
--- NOTE | 2025-05-23 15:50 | PHA.DC_ITS ---
Pharmacy [facility] has performed discharge medication counseling for this patient. The patient was counseled on the following discharge medications and changes in medications for homegoing review. - Azithromycin 250 mg tablet, Hydroxyzine pamoate 25 mg capsule, Prednisone 20 mg tablet The Reason for Use, instructions for use, and potential side effects were reviewed for all new medications. The patient's questions regarding all of their medications were answered. The patient was able to verbally demonstrate an understanding of their discharge medications. Medications at Discharge Home Medications albuterol sulfate 90 mcg/actuation aerosol inhaler (Ventolin HFA) 2 puff inhalation Q6H PRN shortness of breath or wheezing #6.7 grams 01/15/25 amlodipine 2.5 mg tablet 2.5 mg PO QDAY #30 tabs 04/07/25 blood pressure monitor #1 ea 04/07/25 albuterol sulfate 90 mcg/actuation aerosol inhaler 2 puff inhalation Q4H PRN shortness of breath or wheezing #8.5 grams 04/08/25 azithromycin 250 mg tablet 500 mg (2 x 250 mg) PO Q24 #2 tabs 05/23/25 hydroxyzine pamoate 25 mg capsule 25 mg PO Q4H PRN anxiety #40 caps 05/23/25 prednisone 20 mg tablet 40 mg (2 x 20 mg) PO DAILY #15 tabs 05/23/25
== END 2025-05-23 16:03 | disposition home or self-care (01) | DRG 189 ==
LOC: ED 12:33 → PCU 14:00
PROVIDERS: Admitting Provider Internal Medicine; Emergency Provider Emergency Medicine; PCP Internal Medicine; Visit Provider Internal Medicine
DX: J96.21 Acute and chronic respiratory failure with hypoxia (principal); J44.1 Chronic obstructive pulmonary disease with (acute) exacerbation; I10 Essential (primary) hypertension; J96.22 Acute and chronic respiratory failure with hypercapnia; R00.0 Tachycardia, unspecified; F41.1 Generalized anxiety disorder; R60.0 Localized edema; R53.83 Other fatigue; Z86.718 Personal history of other venous thrombosis and embolism; Z79.899 Other long term (current) drug therapy; Z87.891 Personal history of nicotine dependence
CPT/HCPCS: 36600; 71046; 80053; 82803; 83605; 85025; 85379; 87633; 93005; 93306; 94640; 99252; 99285; A4216; G0463